=== PATIENT | male | born 1955 | race Hispanic/Latino ===

== ENCOUNTER 2018-04-06 13:19 | Inpatient (IN) | payer MEDICARE, OTHER, SELFPAY ==
--- NOTE | 2018-04-06 13:50 | RAD ---
3 VIEWS RIGHT FOOT: Date: 04/06/18 COMPARISON: None. HISTORY: Stepped on nail four weeks ago with nonhealing wound in the foot. The patient is diabetic. FINDINGS: Three views of the right foot show no evidence of acute fracture or dislocation. Soft tissue swelling is seen along the lateral aspect of the foot near the metatarsophalangeal joints. There appears to b e air in the soft tissues which could represent an infectious process. Evaluation for erosion of the bone in this location is limited secondary to the lucency from the air. IMPRESSION: There appears to be air in the soft tissues of the foot, likely secondary to an infection. Evaluation for bony involvement is difficult given the air. POS: [facility]
[2018-04-06 15:17] LABS: #Basophils 0.1 thou/uL (0.0-0.2); #Eosinphils 0.1 thou/uL (0.0-0.7); #Lymphocytes 2.1 thou/uL (1.20-3.40); #Neutrophils 9.2 thou/uL (1.40-6.50); %Basophils 0.4 % (0.0-1.0); %Eosinophils 0.8 % (0.0-10.0); %Lymphocytes 16.6 % (21.0-51.0); %Neutrophils 74.2 % (42.0-75.0); Hemoglobin 15.7 g/dL (14.0-18.0); Mean Corpuscular Hemoglobin 30.5 pg (27.0-31.0); Mean Corpuscular Volume 87.1 fL (78.0-98.0); Mean Platelet Volume 7.4 fL (7.4-10.4); Platelet Count 325 thou/uL (130-400); RBC Distribution Width 10.9 % (11.5-14.5); Red Blood Cell (RBC) Count 5.16 mill/uL (4.70-6.10); White Blood Cell (WBC) Count 12.4 thou/uL (4.8-10.8)
[2018-04-06 15:26] LABS: ALT (SGPT) 12 U/L (8-55); AST (SGOT) 13 U/L (5-34); Alkaline Phosphatase 96 U/L (40-150); Anion Gap 12 mmol/L (10-20); BUN (Urea Nitrogen) 12 mg/dL (8.4-25.7); Bilirubin, Total 0.5 mg/dL (0.2-1.2); Calc. Creatinine Clearance 0 mL/min (70-130); Calcium 9.4 mg/dL (7.8-10.44); Carbon Dioxide 29 mmol/L (22-29); Chloride 97 mmol/L (98-107); Estimated GFR-MDRD 87; Globulin 3.5 g/dL (2.4-3.5); Glucose 295 mg/dL (70-105); Potassium 4.3 mmol/L (3.5-5.1); Protein, Total 7.5 g/dL (6.0-8.3); Sodium 134 mmol/L (136-145)
[2018-04-06] MEDS ORDERED: Vancomycin HCl 1 GM in Premix Bag 1 BAG IVPB SCH (15:45)
--- NOTE | 2018-04-06 16:34 | HP ---
PRIMARY CARE PHYSICIAN: [facility]. REASON FOR ADMISSION: Right diabetic foot infection. HISTORY OF PRESENT ILLNESS: A 62-year-old male who has underlying history of diabetes and h ypertension who presented to emergency room for evaluation of right diabetic foot infection. The pat ricardo reports that about 4 weeks ago, he stepped on nail, since then he has pain, swelling in his righ t foot. He was given 2 times two different antibiotic therapy by his primary care physician, but noe silva is not feeling any better, but he feels that it is getting worse. His pain is exacerbated while walking. He did not have any fever or chills. He denies any associated nausea, vomiting, diarrhea, or UTI symptoms. Patient also noticed swelling and erythema over dorsum aspect of the foot and he i s tender in the plantar aspect of the right foot. His intensity of pain is about 7/10 especially wit h walking. REVIEW OF SYSTEMS: The following complete review of systems was negative, unless otherwise mentioned in the HPI or below: Constitutional: Weight loss or gain, ability to conduct usual activities. Skin: Rash, itching. Eyes: Double vision, pain. ENT/Mouth: Nose bleeding, neck stiffness, pain, tenderness. Cardiovascular: Palpitations, dyspnea on exertion, orthopnea. Respiratory: Shortness of breath, wheezing, cough, hemoptysis, fever or night sweats. Gastrointestinal: Poor appetite, abdominal pain, heartburn, nausea, vomiting, constipation, or diarrh ea. Genitourinary: Urgency, frequency, dysuria, nocturia. Musculoskeletal: Pain, swelling. Neurologic/Psychiatric: Anxiety, depression. Allergy/Immunologic: Skin rash, bleeding tendency. Please see my HPI for pertinent positive and negative. All other review of system reviewed and negat mariah except as mentioned in the HPI. PAST MEDICAL HISTORY: Chronic low back pain, diabetes type 2, hypertension, dyslipidemia. PAST SURGICAL HISTORY: Back surgery. PAST PSYCHIATRIC HISTORY: Reviewed and negative. SOCIAL HISTORY: Patient is and lives at home with family. No history of tobacco, alcohol or illicit drug abuse. FAMILY HISTORY: Diabetes runs among several family members. No family history of coronary artery di sease, stroke or cancer. ALLERGIES: No known drug allergy. CURRENT HOME MEDICATIONS: Metformin 500 mg p.o. daily, captopril 12.5 mg p.o. at bedtime, Humulin re gular insulin as per sliding scale. EMERGENCY ROOM COURSE: Patient has received vancomycin. PHYSICAL EXAMINATION: VITAL SIGNS: On arrival, blood pressure 163/89, pulse 99, respiratory rate 16, temperature 97.5, sat uration 99% on room air, weight 70.6 kilograms. GENERAL: Patient is currently alert, awake, no obvious acute distress. HEENT: Head is normocephalic, atraumatic. Eyes: Pupils round, reactive to light. Extraocular musc le intact. ENT: Oropharynx within normal limits. Moist mucous membranes, no oral lesions, no phary ngeal erythema, no exudate. NECK: Supple, no JVD, no thyromegaly, no carotid bruit, no jugular venous distention. LUNGS: Clear to auscultation without any rhonchi or rales. CARDIAC: S1, S2 regular. No murmur, no gallop, no rub. ABDOMEN: Soft, bowel sounds present, nontender, nondistended. No organomegaly, no mass, no suprapub ic tenderness. BACK: Unremarkable, no CVA tenderness. EXTREMITIES: Upper extremity, passive movement of all joints are normal. Lower extremity, right brody t with a diabetic foot infection noted with erythema on the dorsum aspect of the foot as well as eryt beba on the plantar aspect of the foot. Fluctuance noted. Left foot within normal limits. Otherwis e, lower extremity within normal limit. NEUROLOGIC: Nonfocal examination. SIGNIFICANT LABORATORY DATA AND IMAGING: Foot x-ray showing air in the soft tissue of the foot, like ly due to infection. CBC: WBC 12.4, hemoglobin 15.7, platelets 325. BMP: Sodium 134, potassium 4. 3, chloride 97, carbon dioxide 29, BUN 12, creatinine 0.89, glucose 295, calcium 9.4. Lactic acid 0. 8. LFT: AST 13, ALT 12, alkaline phosphatase 96, albumin 4.0. ASSESSMENT: 1. Right diabetic foot infection. 2. Failure of outpatient therapy. 3. Mild sepsis due to problem #1. 4. Diabetes type 2, uncontrolled. 5. Hypertension. 6. Dyslipidemia. PLAN: Full admission to medical floor. General Surgery evaluation for possible debridement. If nee ded, we will obtain MRI of right lower extremity. We will treat infection with vancomycin and Zosyn. Vancomycin dose will be adjusted by pharmacy. We will control his pain with [place] and morphine. P robiotics with Florastor 250 mg p.o. daily. We will control his diabetes with insulin as per sliding scale. We will continue with metformin 500 mg p.o. b.i.d., captopril 25 mg p.o. b.i.d., Lipitor 10 mg p.o. at bedtime and aspirin 81 mg p.o. daily. Deep venous thrombosis prophylaxis. Lovenox 40 mg subcu daily. Gastrointestinal prophylaxis, Pepcid 20 mg p.o. b.i.d. Code status: The patient is FULL CODE. The patient's is surrogate decision maker. Disposition plan based on clinical course. We are expecting patient's stay in hospital more than 2 m idnights. Plan of care discussed with the patient in detail.
[2018-04-06 17:06] LABS: Bilirubin Negative (Negative); Blood, Urine Trace (Negative); Clarity CLEAR (Clear); Glucose, Urine (Dipstick) 500 mg/dL (Negative); Leukocyte Negative (Negative); Nitrite Negative (Negative); Protein, Urine (Dipstick) 30 mg/dL (Neg-Trace); Specific Gravity, Urine 1.009 (1.002-1.036); Urobilinogen 0.2 mg/dL (0.2-1.0)
[2018-04-06 17:08] LABS: Bacteria/HPF None Seen HPF (None Seen); Hyaline Casts/LPF 0-3 HYALINE CAST LPF (0-3 Hyaline); RBC/HPF 0-3 HPF (0-3); Squamous Epithelial None Seen HPF (0-3); WBC/HPF None Seen HPF (0-3)
[2018-04-06] MEDS ORDERED: Diabetic Tussin 200 MG/10 ML UDCUP PO PRN (17:26)
[2018-04-06] MEDS ORDERED: Milk Of Magnesia 30 ML UDCUP PO PRN (17:26)
[2018-04-06] MEDS ORDERED: Labetalol HCl 100 MG/20 ML VIAL SLOW IVP PRN (17:26)
[2018-04-06] MEDS ORDERED: Eucerin (Mineral Oil/Petrolatum,White) 30 gm Jar TOP PRN (17:26)
[2018-04-06] MEDS ORDERED: Dextrose 5% in Water 1,000 ML IV PRN (17:26)
[2018-04-06] MEDS ORDERED: Ondansetron HCl/PF 4 MG/2 ML Vial IVP PRN ×2 (17:26)
[2018-04-06] MEDS ORDERED: Acetaminophen 325 MG TAB PO PRN ×2 (17:26)
[2018-04-06] MEDS ORDERED: Ondansetron ODT 4 MG TAB SL PRN (17:26)
[2018-04-06] MEDS ORDERED: Loperamide HCl 2 MG CAP PO PRN (17:26)
[2018-04-06] MEDS ORDERED: Chloraseptic Spray 180 ml Bottle PO PRN (17:26)
[2018-04-06] MEDS ORDERED: Senokot 8.6 MG TAB PO PRN (17:26)
[2018-04-06] MEDS ORDERED: Sodium Chloride 0.65% Nasal 44 ML BOT EA NARE PRN (17:26)
[2018-04-06] MEDS ORDERED: Artificial Tears 18 DROP/0.9 ML EA EYE PRN (17:26)
[2018-04-06] MEDS ORDERED: Loratadine 10 MG TAB PO PRN (17:26)
[2018-04-06] MEDS ORDERED: Dextrose 50% Abboject 50 ML SYRINGE SLOW IVP PRN (17:26)
[2018-04-06] MEDS ORDERED: Zolpidem Tartrate 5 MG TAB PO PRN (17:26)
[2018-04-06 17:31] VITALS: BMI 23.6
[2018-04-06] MEDS ORDERED: Piperacillin/Tazobactam 4.5 GM in Sodium Chloride 0.9% 100 ML IVPB SCH ×2 (18:00)
[2018-04-06] MEDS ORDERED: metFORMIN 500 MG TAB PO SCH (18:00)
[2018-04-06] MEDS: Sodium Chloride 0.9% 1,000 ML IV SCH (18:30)
[2018-04-06] MEDS: Piperacillin/Tazobactam 4.5 GM in Sodium Chloride 0.9% 100 ML IVPB SCH (18:30)
[2018-04-06] MEDS: Famotidine 20 MG TAB PO SCH (20:53)
[2018-04-06] MEDS: Atorvastatin Calcium 10 MG TAB PO SCH (20:53)
[2018-04-06] MEDS: HYDROcodone/Acetaminophen 5/325 mg Tablet PO PRN (20:54)
[2018-04-06] MEDS: HumaLOG 300 UNITS/3 ML VIAL SC PRN (20:55)
[2018-04-07] MEDS: Piperacillin/Tazobactam 4.5 GM in Sodium Chloride 0.9% 100 ML IVPB SCH ×5 (00:01→23:48)
[2018-04-07] MEDS: Vancomycin HCl 1 GM in Premix Bag 1 BAG IVPB SCH ×2 (03:11→16:09)
[2018-04-07] MEDS: Sodium Chloride 0.9% 1,000 ML IV SCH ×3 (03:11→21:17)
[2018-04-07 04:42] LABS: #Basophils 0.1 thou/uL (0.0-0.2); #Eosinphils 0.3 thou/uL (0.0-0.7); #Lymphocytes 2.7 thou/uL (1.20-3.40); #Monocytes 1.2 thou/uL (0.11-0.59); #Neutrophils 8.7 thou/uL (1.40-6.50); %Basophils 0.4 % (0.0-1.0); %Lymphocytes 21.1 % (21.0-51.0); %Monocytes 9.5 % (0.0-10.0); %Neutrophils 66.9 % (42.0-75.0); Hemoglobin 14.5 g/dL (14.0-18.0); Mean Corpuscular HGB CONC 34.9 g/dL (32.0-36.0); Mean Corpuscular Hemoglobin 30.5 pg (27.0-31.0); Mean Corpuscular Volume 87.3 fL (78.0-98.0); Mean Platelet Volume 7.2 fL (7.4-10.4); Platelet Count 311 thou/uL (130-400); RBC Distribution Width 10.8 % (11.5-14.5); Red Blood Cell (RBC) Count 4.76 mill/uL (4.70-6.10); White Blood Cell (WBC) Count 12.9 thou/uL (4.8-10.8)
[2018-04-07 05:04] LABS: ALT (SGPT) 10 U/L (8-55); AST (SGOT) 12 U/L (5-34); Albumin 3.5 g/dL (3.5-5.0); Alkaline Phosphatase 77 U/L (40-150); Anion Gap 12 mmol/L (10-20); BUN (Urea Nitrogen) 10 mg/dL (8.4-25.7); Bilirubin, Total 0.3 mg/dL (0.2-1.2); Calc. Creatinine Clearance 93 mL/min (70-130); Calcium 8.9 mg/dL (7.8-10.44); Carbon Dioxide 26 mmol/L (22-29); Chloride 100 mmol/L (98-107); Estimated GFR-MDRD Greater than 90; Globulin 3.5 g/dL (2.4-3.5); Glucose 277 mg/dL (70-105); Potassium 4.3 mmol/L (3.5-5.1); Sodium 134 mmol/L (136-145)
[2018-04-07] MEDS ORDERED: Maxitrol 0.1% Opth Oint 3.5 GM TUBE ONE (06:43)
[2018-04-07] MEDS ORDERED: Bupivacaine HCl 0.25%/Epi 0.0005/PF 10 ML VIAL FS ONE ×2 (06:43→06:46)
[2018-04-07] MEDS ORDERED: Bacitracin Zinc Ointment 30 gm TUBE ONE (06:46)
[2018-04-07] MEDS ORDERED: Fentanyl 100 MCG/2 ML VIAL ONE ×2 (06:56→08:37)
--- NOTE | 2018-04-07 07:16 | CON ---
DATE OF CONSULTATION: 04/07/2018 REASON FOR CONSULT: Right foot diabetic infection. HISTORY OF PRESENT ILLNESS: Mr. Montes is a 65-year-old man with diabetes who stepped on a nail about 4 weeks ago. He states that he was put on antibiotics by his doctor, but has continued to have pain and swelling in his right foot, which has never completely resolved. He states that the pain fluctu ates in intensity, but never goes completely away. The wound on the bottom of his foot healed, but t he wound on the top of his foot is still open. He has not had much drainage. He has not had any fev ers or chills. He came to the emergency room and was admitted for IV antibiotics. A foot x-ray done in the emergency room showed gas in the soft tissues of the plantar foot, so surgical consult was re quested. PAST MEDICAL HISTORY: Diabetes, hypertension, hyperlipidemia and chronic back pain. PAST SURGICAL HISTORY: Back surgery. SOCIAL HISTORY: He does not smoke, drink or use illicit drugs. FAMILY HISTORY: Diabetes. ALLERGIES: No known drug allergies. OUTPATIENT MEDICATIONS: Metformin, captopril and sliding scale insulin. INPATIENT MEDICATIONS: Aspirin, Lipitor, captopril, Lovenox, Pepcid, sliding scale insulin, Zosyn, F lorastor, vancomycin and multiple PRNs. PHYSICAL EXAMINATION: VITAL SIGNS: The Patient has been afebrile since his admission. Heart rate 83, respirations 18, 94% saturated on room air, blood pressure 154/77. GENERAL: Reveals a healthy-appearing man in no acute distress. He is not flushed or toxic in appear ance. He is not jaundiced or icteric. HEENT: Neck is supple, without lymphadenopathy or thyroid nodules. HEART: Regular in its rate and rhythm without murmurs, rubs or gallops. LUNGS: Clear to auscultation bilaterally. ABDOMEN: Soft, nontender, nondistended, no palpable hernias or masses. No rigidity, rebound or guar ding. EXTREMITIES: Warm and well perfused. He has normal dorsalis pedis and posterior tibial pulses. His left foot is without any lesions. His right foot has a healed scar on the plantar surface between t he fourth and fifth metatarsal heads and an open wound on the dorsal surface between the fourth and f ifth metatarsal heads. There is no expressible purulence through this wound. The plantar surface of the foot medial to the healed stab wound is fluctuant and tender. There is erythema over the forefo ot. No lymphangitic streaking above the ankle. LABORATORY AND X-RAY FINDINGS: Plain films of the foot are reviewed and I agree with the written rep ort. ASSESSMENT: Diabetic abscess due to puncture wound. PLAN: I have recommended incision and drainage in the operating room. Due to the chronicity of his infection it is possible that he has osteomyelitis or an infection into the joint of his toes. I exp lained that if this is the case, I would recommend amputation of the toe, but the patient is unwillin g to consider that at this time. He is willing to proceed with incision and drainage of the abscess and with long-term antibiotics and wound care. He has been posted for the operating room. We will c ontinue his perioperative antibiotics. The procedure and its inherent risks were discussed with the patient. These include bleeding, infection, risks of anesthesia, need for other procedures, possibil ity for the infection to advance causing a loss of additional toes or the foot and failure of the wou nd to heal.
[2018-04-07] MEDS ORDERED: Promethazine HCl 25 MG/ML VIAL IM PRN (08:04)
[2018-04-07] MEDS ORDERED: Promethazine HCl 25 MG/ML VIAL SLOW IVP PRN (08:04)
[2018-04-07] MEDS ORDERED: Ondansetron HCl/PF 4 MG/2 ML Vial IVP PRN (08:04)
[2018-04-07] MEDS: Famotidine 20 MG TAB PO SCH ×2 (08:58→21:17)
[2018-04-07] MEDS: Saccharomyces boulardii 250 MG CAP PO SCH (08:58)
[2018-04-07] MEDS: metFORMIN 500 MG TAB PO SCH ×2 (08:59→16:07)
[2018-04-07] MEDS: Enoxaparin Sodium 40 MG/0.4 ML SYRINGE SC SCH (09:00)
--- NOTE | 2018-04-07 11:22 | PDOC.PN ---
- Subjective Encounter Start Date: 04/07/18 Encounter Start Time: 09:20 -: old records requested/rev pt had I & D today, he feels better, his pain is controlled - Objective Resuscitation Status: Resuscitation Status FULL:Full Resuscitation MAR Reviewed: Yes Vital Signs & Weight: Vital Signs (12 hours) Temp Pulse Resp BP BP Pulse Ox 04/07/18 10:55 97.7 F 92 20 175/89 H 95 04/07/18 10:29 97.7 F 81 18 156/82 H 97 04/07/18 09:00 75 191/83 H 04/07/18 08:50 97.6 F 75 18 99 04/07/18 00:00 98.2 F 83 18 154/77 H 94 L Weight Admit Weight 155 lb Weight 155 lb I&O: 04/06/18 04/07/18 04/08/18 06:59 06:59 06:59 Intake Total 1076 Balance 1076 Result Diagrams: 04/07/18 04:08 04/07/18 04:08 Additional Labs: Accuchecks 04/07/18 04/06/18 05:11 20:41 POC Glucose 236 H 230 H Phys Exam - Physical Examination Constitutional: NAD HEENT: PERRLA, moist MMs, sclera anicteric Neck: no JVD, supple Respiratory: no wheezing, no rales, no rhonchi Cardiovascular: RRR, no significant murmur, no rub Gastrointestinal: soft, non-tender, no distention, positive bowel sounds Musculoskeletal: no edema, pulses present right foot with dressing and wound vac in place Neurological: non-focal, normal sensation, moves all 4 limbs Psychiatric: normal affect, A&O x 3 Skin: no rash, normal turgor Dx/Plan (1) Diabetic foot infection Code(s): E11.628 - TYPE 2 DIABETES MELLITUS WITH OTHER SKIN COMPLICATIONS; L08.9 - LOCAL INFECTION OF THE SKIN AND SUBCUTANEOUS TISSUE, UNSP Status: Acute Plan: continue IV antibiotics as ordered, follow culture, on vancomycin and zosyn Comment: s/p I & D (2) Failure of outpatient treatment Code(s): Z78.9 - OTHER SPECIFIED HEALTH STATUS Status: Acute (3) DM2 (diabetes mellitus, type 2) Status: Chronic (4) Dyslipidemia Code(s): E78.5 - HYPERLIPIDEMIA, UNSPECIFIED Status: Chronic (5) HTN (hypertension) Code(s): I10 - ESSENTIAL (PRIMARY) HYPERTENSION Status: Chronic - Plan cont current plan of care, plan discussed w/ family, continue antibiotics * wound care * consult dr alejandra to decide if IV antibiotics vs oral on discharge * medication reviewed as below * symptomatic treatment * discussed with family bedside. Review of Systems - Review of Systems Constitutional: negative: fever, chills, sweats, weakness, malaise, other Eyes: negative: Pain, Vision Change, Conjunctivae Inflammation, Eyelid Inflammation, Redness, Other ENT: negative: Ear Pain, Ear Discharge, Nose Pain, Nose Discharge, Nose Congestion, Mouth Pain, Mouth Swelling, Throat Pain, Throat Swelling, Other Respiratory: negative: Cough, Dry, Shortness of Breath, Hemoptysis, SOB with Excertion, Pleuritic Pain, Sputum, Wheezing Cardiovascular: negative: chest pain, palpitations, orthopnea, paroxysmal nocturnal dyspnea, edema, light headedness, other Gastrointestinal: negative: Nausea, Vomiting, Abdominal Pain, Diarrhea, Constipation, Melena, Hematochezia, Other Genitourinary: negative: Dysuria, Frequency, Incontinence, Hematuria, Retention , Other Musculoskeletal: Foot Pain. negative: Neck Pain, Shoulder Pain, Arm Pain, Back Pain, Hand Pain, Leg Pain, Other - Medications/Allergies Allergies/Adverse Reactions: Allergies Allergy/AdvReac Type Severity Reaction Status Date / Time No Known Drug Allergies Allergy Verified 06/13/17 21:20 Medications: Current Medications Acetaminophen (Tylenol) 650 mg PO Q4H PRN PRN Reason: Headache/Fever or Pain Hydrocodone Bitart/Acetaminophen ([place] 5/325) 1 tab PO Q4H PRN PRN Reason: Moderate Pain (4-6) Last Admin: 04/06/18 20:54 Dose: 1 tab Al Hydroxide/Mg Hydroxide (Maalox) 30 ml PO Q6H PRN PRN Reason: Heartburn or Indigestion Artificial Tears (Tears Naturale) 0 drop EA EYE PRN PRN PRN Reason: Dry Eyes Aspirin (Aspirin Chewable) 81 mg PO DAILY [facility] Last Admin: 04/07/18 08:59 Dose: 81 mg Atorvastatin Calcium (Lipitor) 10 mg PO HS [facility] Last Admin: 04/06/18 20:53 Dose: 10 mg Captopril (Capoten) 25 mg PO BID-AC [facility] Last Admin: 04/07/18 09:00 Dose: 25 mg Dextrose/Water (Dextrose 50%) 25 gm SLOW IVP PRN PRN PRN Reason: Hypoglycemia Enoxaparin Sodium (Lovenox) 40 mg SC 0900 [facility] Last Admin: 04/07/18 09:00 Dose: Not Given Famotidine (Pepcid) 20 mg PO BID [facility] Last Admin: 04/07/18 08:58 Dose: 20 mg Glucagon (Glucagon) 1 mg IM PRN PRN PRN Reason: Hypoglycemia Guaifenesin (Robitussin Sf) 200 mg PO Q4H PRN PRN Reason: Cough Hydralazine HCl (Apresoline) 10 mg SLOW IVP Q4H PRN PRN Reason: Systolic BP > 180 Dextrose/Water (D5w) 1,000 mls @ 0 mls/hr IV .Q0M PRN; As Directed PRN Reason: Hypoglycemia Sodium Chloride (Normal Saline 0.9%) 1,000 mls @ 100 mls/hr IV .Q10H [facility] Last Admin: 04/07/18 03:11 Dose: 1,000 mls Piperacillin Sod/Tazobactam (Sod 4.5 gm/ Sodium Chloride) 100 mls @ 200 mls/hr IVPB Q6HR [facility] Last Admin: 04/07/18 05:28 Dose: 100 mls Vancomycin HCl 1 gm/ Device 200 mls @ 200 mls/hr IVPB 0400,1600 [facility] Last Admin: 04/07/18 03:11 Dose: 200 mls Insulin Human Lispro (Humalog) 0 units SC .MODERATE SLIDING SC PRN PRN Reason: Moderate Correctional Scale Insulin Human Lispro (Humalog) 0 units SC .BEDTIME SLIDING SC PRN PRN Reason: Bedtime Correctional Scale Last Admin: 04/06/18 20:55 Dose: 2 unit Labetalol HCl (Normodyne) 20 mg SLOW IVP Q4H PRN PRN Reason: Systolic BP > 180 Loperamide HCl (Imodium) 2 mg PO PRN PRN PRN Reason: Diarrhea/Loose Stools Loratadine (Claritin) 10 mg PO DAILYPRN PRN PRN Reason: Sinus Symptoms Magnesium Hydroxide (Milk Of Magnesium) 30 ml PO DAILYPRN PRN PRN Reason: Constipation Metformin HCl (Glucophage) 500 mg PO BID-[facility] Last Admin: 04/07/18 08:59 Dose: 500 mg Mineral Oil/White Petrolatum (Eucerin Cream) 0 gm TOP BIDPRN PRN PRN Reason: Dry Skin Miscellaneous Medication (Pharmacy To Dose) 1 each IVPB ONE PRN PRN Reason: Pharmacy to dose Stop: 05/06/18 17:27 Morphine Sulfate (Morphine) 2 mg SLOW IVP Q4H PRN PRN Reason: Pain Last Admin: 04/07/18 09:26 Dose: 2 mg Ondansetron HCl (Zofran Odt) 4 mg PO Q6H PRN PRN Reason: Nausea/Vomiting Ondansetron HCl (Zofran) 4 mg IVP Q6H PRN PRN Reason: Nausea/Vomiting Phenol (Chloraseptic [place] 180 Ml Bot) 0 ml PO PRN PRN PRN Reason: Sore Throat Saccharomyces Boulardii (Florastor) 250 mg PO DAILY [facility] Last Admin: 04/07/18 08:58 Dose: 250 mg Senna (Senokot) 2 tab PO HSPRN PRN PRN Reason: Constipation Sodium Chloride ([place] Nasal [place] 0.65%) 0 ml EA NARE QIDPRN PRN PRN Reason: Nasal Congestion Zolpidem Tartrate (Ambien) 5 mg PO HSPRN PRN PRN Reason: Insomnia
[2018-04-07] MEDS: HumaLOG 300 UNITS/3 ML VIAL SC PRN ×3 (12:00→21:18)
[2018-04-07] MEDS ORDERED: PROPOFOL 200 MG/20 ML VIAL ONE (13:15)
[2018-04-07] MEDS ORDERED: Lidocaine 1% PF 5 ML VIAL ONE (13:15)
[2018-04-07] MEDS ORDERED: Ondansetron HCl/PF 4 MG/2 ML Vial ONE (13:15)
[2018-04-07] MEDS ORDERED: Ketorolac Tromethamine 30 MG/ML VIAL ONE (13:15)
[2018-04-07] MEDS ORDERED: Dexamethasone 20 MG/5 ML VIAL ONE (13:15)
[2018-04-07] MEDS: HYDROcodone/Acetaminophen 5/325 mg Tablet PO PRN (16:08)
[2018-04-07] MEDS: Atorvastatin Calcium 10 MG TAB PO SCH (21:17)
--- NOTE | 2018-04-07 22:13 | CON ---
DATE OF CONSULTATION: 04/07/2018 REASON FOR CONSULTATION: Right foot inflammatory process. HISTORY OF PRESENT ILLNESS: A 62-year-old history of type 2 diabetes and hypertension, who stepped o n one sharp object, appears to be a nail or some sort of tac that penetrated his bottom aspect of his lateral forefoot right side through his sandals. He was walking in the backyard area. The patient developed inflammatory process in the right lateral forefoot and he was seen by a physician in an out lying clinic and given what appears to be Rocephin plus on oral antimicrobial therapy, which he does not recall the name. There was no improvement in inflammatory process. He denied any headaches, vis ual symptoms, sore throat, odynophagia, dysphagia, no abdominal pain or diarrhea. No genitourinary s ymptoms. He did develop swelling of the dorsal aspect of the right foot and eventually decided to co me to the emergency room and was admitted. Initial findings included air and soft tissues of the rig ht foot. White cell count 12,000, hemoglobin 15 and creatinine 0.89, glucose 295. Surgical debridem ent has been performed by Dr. Tamayo. Currently, he is comfortable at rest. Denies headaches. Oth er 10-point review of systems is as above. He has moderate pain at the right foot. PAST MEDICAL HISTORY: Includes type 2 diabetes, back pain, hypertension, dyslipidemia. PAST SURGICAL HISTORY: Laminectomy. SOCIAL HISTORY: Never a smoker. . FAMILY HISTORY: Noncontributory except for diabetes. ALLERGIES: None. CURRENT MEDICATION LIST: Includes Tylenol, [place], Maalox, aspirin, Lipitor, Capoten, enoxaparin, hyd ralazine, loperamide, Zosyn, and vancomycin. PHYSICAL EXAMINATION: VITAL SIGNS: T-max 98.2, blood pressure 175/89, pulse 92, respirations 18-20, and O2 sat 95%. SKIN: Shows the foot right before the surgical intervention with an area of blistering with epidermo lysis restricted to 1.5 cm region, dorsal aspect of the right forefoot lateral aspect between the fou rth and the fifth toes. In the bottom section of the right foot, there is a puncture wound noticeabl e. No necrosis noted there. No lymphadenopathy. HEENT: No lymphadenopathy. Ocular movements conjugate. Oral cavity with quite a few missing teeth. Remainder ones with some decay. NECK: Supple, no jugular vein distention or carotid bruits. LUNGS: Symmetric clear breath sounds. HEART: S1 and S2, regular rate. No S3 or S4. ABDOMEN: Soft, not distended or tender. No ascites. No bladder distention. EXTREMITIES: No joint inflammatory activity outside the area of involvement. Pulses are 2+ in dorsa lis pedis. Cap refill normal. NEUROLOGIC: Cognitive function appears to be normal. LABORATORY DATA: White cell count 12.4, now 12.9, hemoglobin 14, platelets 311. Sodium 134, creatin ine 0.84 with a normal liver profile, albumin 3.5. Urinalysis was normal. Microbiology with pending cultures, blood cultures thus far negative. A few gram negative rods were seen in the Gram stain fr om the foot I&D process. ASSESSMENT: Type 2 diabetes with perforating injury to the right forefoot and now with inflammatory process, status post surgical debridement. We will wait for the surgical report, may need an MRI to evaluate for bone penetration, but if it is restricted to the soft tissues and will just wait for the final identification and susceptibility profile of the organism. There is a risk of Pseudomonas in view of the type of injury and depending on susceptibility might require continuation of IV antimicro bial therapy or not. Again if the surgical report is equivocal, then we will probably complete the e valuation of the MRI of the right foot make sure that we do not have to extend the duration of therap y. No evidence of bacteremia or distant sites of involvement at this point in time.
[2018-04-08 03:31] LABS: Vancomycin, Trough 8.4 ug/mL
[2018-04-08] MEDS: Vancomycin HCl 1.5 GM in Sodium Chloride 0.9% 250 ML 300 ML IVPB SCH ×2 (03:51→15:04)
[2018-04-08] MEDS: HumaLOG 300 UNITS/3 ML VIAL SC PRN ×2 (05:57→21:18)
[2018-04-08] MEDS: Piperacillin/Tazobactam 4.5 GM in Sodium Chloride 0.9% 100 ML IVPB SCH ×4 (05:57→23:42)
[2018-04-08] MEDS: Sodium Chloride 0.9% 1,000 ML IV SCH (05:57)
[2018-04-08] MEDS: Saccharomyces boulardii 250 MG CAP PO SCH (08:10)
[2018-04-08] MEDS: Famotidine 20 MG TAB PO SCH ×2 (08:11→21:13)
[2018-04-08] MEDS: metFORMIN 500 MG TAB PO SCH ×2 (08:11→16:56)
[2018-04-08] MEDS: Enoxaparin Sodium 40 MG/0.4 ML SYRINGE SC SCH (08:12)
[2018-04-08] MEDS ORDERED: Polyethylene Glycol 3350 17 GM Packet PO SCH (10:15)
--- NOTE | 2018-04-08 11:45 | PDOC.PN ---
- Subjective Encounter Start Date: 04/08/18 Encounter Start Time: 10:00 Patient seen and examined. No new complaints. No overnight events has constipation - Objective Resuscitation Status: Resuscitation Status FULL:Full Resuscitation MAR Reviewed: Yes Vital Signs & Weight: Vital Signs (12 hours) Temp Pulse Resp BP BP Pulse Ox 04/08/18 08:12 81 160/83 H 04/08/18 08:00 98.3 F 81 20 95 04/08/18 07:29 98.3 F 81 18 160/83 H 95 04/08/18 03:16 98.5 F 85 16 135/68 95 04/08/18 00:00 98.5 F 85 16 145/75 H 95 Weight Admit Weight 155 lb Weight 155 lb I&O: 04/07/18 04/08/18 04/09/18 06:59 06:59 06:59 Intake Total 1076 3310 Output Total 800 Balance 1076 2510 Result Diagrams: 04/07/18 04:08 04/07/18 04:08 Additional Labs: Accuchecks 04/08/18 04/07/18 04/07/18 05:57 20:15 16:27 POC Glucose 224 H 215 H 350 H Phys Exam - Physical Examination Constitutional: NAD HEENT: PERRLA, moist MMs, sclera anicteric Neck: no JVD, supple Respiratory: no wheezing, no rales, no rhonchi Cardiovascular: RRR, no significant murmur, no rub Gastrointestinal: soft, non-tender, no distention, positive bowel sounds Musculoskeletal: no edema, pulses present wound vac in place Neurological: non-focal, normal sensation Psychiatric: normal affect, A&O x 3 Skin: no rash, normal turgor Dx/Plan (1) Diabetic foot infection Code(s): E11.628 - TYPE 2 DIABETES MELLITUS WITH OTHER SKIN COMPLICATIONS; L08.9 - LOCAL INFECTION OF THE SKIN AND SUBCUTANEOUS TISSUE, UNSP Status: Acute Comment: s/p I & D (2) Failure of outpatient treatment Code(s): Z78.9 - OTHER SPECIFIED HEALTH STATUS Status: Acute (3) DM2 (diabetes mellitus, type 2) Status: Chronic (4) Dyslipidemia Code(s): E78.5 - HYPERLIPIDEMIA, UNSPECIFIED Status: Chronic (5) HTN (hypertension) Code(s): I10 - ESSENTIAL (PRIMARY) HYPERTENSION Status: Chronic - Plan cont current plan of care, plan discussed w/ family, continue antibiotics * continue wound care * continue iv antibiotics * pain controlled * miralax and colace. Review of Systems - Review of Systems Eyes: negative: Pain, Vision Change, Conjunctivae Inflammation, Eyelid Inflammation, Redness, Other ENT: negative: Ear Pain, Ear Discharge, Nose Pain, Nose Discharge, Nose Congestion, Mouth Pain, Mouth Swelling, Throat Pain, Throat Swelling, Other Respiratory: negative: Cough, Dry, Shortness of Breath, Hemoptysis, SOB with Excertion, Pleuritic Pain, Sputum, Wheezing Cardiovascular: negative: chest pain, palpitations, orthopnea, paroxysmal nocturnal dyspnea, edema, light headedness, other Gastrointestinal: Constipation. negative: Nausea, Vomiting, Abdominal Pain, Diarrhea, Melena, Hematochezia, Other Genitourinary: negative: Dysuria, Frequency, Incontinence, Hematuria, Retention , Other Musculoskeletal: negative: Neck Pain, Shoulder Pain, Arm Pain, Back Pain, Hand Pain, Leg Pain, Foot Pain, Other Skin: negative: Rash, Lesions, Tulio, Bruising, Other - Medications/Allergies Allergies/Adverse Reactions: Allergies Allergy/AdvReac Type Severity Reaction Status Date / Time No Known Drug Allergies Allergy Verified 06/13/17 21:20 Medications: Current Medications Acetaminophen (Tylenol) 650 mg PO Q4H PRN PRN Reason: Headache/Fever or Pain Hydrocodone Bitart/Acetaminophen ([place] 5/325) 1 tab PO Q4H PRN PRN Reason: Moderate Pain (4-6) Last Admin: 04/07/18 16:08 Dose: 1 tab Al Hydroxide/Mg Hydroxide (Maalox) 30 ml PO Q6H PRN PRN Reason: Heartburn or Indigestion Artificial Tears (Tears Naturale) 0 drop EA EYE PRN PRN PRN Reason: Dry Eyes Aspirin (Aspirin Chewable) 81 mg PO DAILY [facility] [place] Last Admin: 04/08/18 08:11 Dose: 81 mg Atorvastatin Calcium (Lipitor) 10 mg PO HS [facility] [place] Last Admin: 04/07/18 21:17 Dose: 10 mg Captopril (Capoten) 25 mg PO BID-AC [facility] Last Admin: 04/08/18 08:12 Dose: 25 mg Dextrose/Water (Dextrose 50%) 25 gm SLOW IVP PRN PRN PRN Reason: Hypoglycemia Docusate Sodium (Colace) 100 mg PO BID [facility] [place] Enoxaparin Sodium (Lovenox) 40 mg SC 0900 [facility] Last Admin: 04/08/18 08:12 Dose: 40 mg Famotidine (Pepcid) 20 mg PO BID [facility] Last Admin: 04/08/18 08:11 Dose: 20 mg Glucagon (Glucagon) 1 mg IM PRN PRN PRN Reason: Hypoglycemia Guaifenesin (Robitussin Sf) 200 mg PO Q4H PRN PRN Reason: Cough Hydralazine HCl (Apresoline) 10 mg SLOW IVP Q4H PRN PRN Reason: Systolic BP > 180 Dextrose/Water (D5w) 1,000 mls @ 0 mls/hr IV .Q0M PRN; As Directed PRN Reason: Hypoglycemia Piperacillin Sod/Tazobactam (Sod 4.5 gm/ Sodium Chloride) 100 mls @ 200 mls/hr IVPB Q6HR [facility] [place] Last Admin: 04/08/18 11:30 Dose: 100 mls Vancomycin HCl 1.5 gm/ Sodium (Chloride) 300 mls @ 200 mls/hr IVPB 0400,1600 [facility] [place] Last Admin: 04/08/18 03:51 Dose: 300 mls Insulin Human Lispro (Humalog) 0 units SC .MODERATE SLIDING SC PRN PRN Reason: Moderate Correctional Scale Last Admin: 04/08/18 05:57 Dose: 4 unit Insulin Human Lispro (Humalog) 0 units SC .BEDTIME SLIDING SC PRN PRN Reason: Bedtime Correctional Scale Last Admin: 04/07/18 21:18 Dose: 2 unit Labetalol HCl (Normodyne) 20 mg SLOW IVP Q4H PRN PRN Reason: Systolic BP > 180 Loperamide HCl (Imodium) 2 mg PO PRN PRN PRN Reason: Diarrhea/Loose Stools Loratadine (Claritin) 10 mg PO DAILYPRN PRN PRN Reason: Sinus Symptoms Magnesium Hydroxide (Milk Of Magnesium) 30 ml PO DAILYPRN PRN PRN Reason: Constipation [facility] Last Admin: 04/08/18 08:11 Dose: 500 mg Mineral Oil/White Petrolatum (Eucerin Cream) 0 gm TOP BIDPRN PRN PRN Reason: Dry Skin Miscellaneous Medication (Pharmacy To Dose) 1 each IVPB ONE PRN PRN Reason: Pharmacy to dose Stop: 05/06/18 17:27 Morphine Sulfate (Morphine) 2 mg SLOW IVP Q4H PRN PRN Reason: Pain Last Admin: 04/08/18 05:56 Dose: 2 mg Ondansetron HCl (Zofran Odt) 4 mg PO Q6H PRN PRN Reason: Nausea/Vomiting Ondansetron HCl (Zofran) 4 mg IVP Q6H PRN PRN Reason: Nausea/Vomiting Phenol (Chloraseptic [place] 180 Ml Bot) 0 ml PO PRN PRN PRN Reason: Sore Throat Polyethylene Glycol (Miralax) 17 gm PO DAILY [facility] Polyethylene Glycol (Miralax) 17 gm PO ONE [facility] Stop: 04/08/18 12:00 Saccharomyces Boulardii (Florastor) 250 mg PO DAILY [facility] Last Admin: 04/08/18 08:10 Dose: 250 mg Senna (Senokot) 2 tab PO HSPRN PRN PRN Reason: Constipation Sodium Chloride ([place] Nasal [place] 0.65%) 0 ml EA NARE QIDPRN PRN PRN Reason: Nasal Congestion Sodium Chloride (Flush - Normal Saline) 10 ml IVF Q12HR [facility] Sodium Chloride (Flush - Normal Saline) 10 ml IVF PRN PRN PRN Reason: Saline Flush Zolpidem Tartrate (Ambien) 5 mg PO HSPRN PRN PRN Reason: Insomnia Last Admin: 04/07/18 21:17 Dose: 5 mg
--- NOTE | 2018-04-08 18:26 | PDOC.OP ---
Operative Note - Operative Note Operative Note: PROCEDURE: Incision and debridement of right foot abscess DATE OF PROCEDURE: 04/07/2018 SURGEON: Bronson Tamayo M.D. PREOPERATIVE DIAGNOSES: Right foot abscess in diabetic patient POSTOPERATIVE DIAGNOSIS: Right foot abscess and diabetic patient HISTORY: Patient is a 62-year-old diabetic male who stepped on a nail 4 weeks prior to admission. He has continuing redness and swelling and pain of his foot and a plain film of the foot showed gas in the plantar soft tissues consistent with infection. Recommendation was made to proceed to the operating room for incision and debridement. I recommended amputation if there is obvious involvement of the bones or joints the fourth or fifth toes. The patient refused to consider amputation at this time so incision and debridement alone was planned. PROCEDURE IN DETAIL: After informed consent was obtained and appropriate preoperative antibiotics were continued the patient was taken to the operating on his placed in supine position and general anesthesia was administered. His prepped and draped in the standard sterile fashion and local anesthesia infused the skin and subcutaneous tissues overlying his dorsal wound. The skin was incised and a large abscess cavity encountered. Pus was sent for Gram stain and culture. The nonviable skin and subcutaneous tissues were sharply excised. The abscess cavity was found to track between his fourth and fifth metatarsals down to the plantar abscess which had been seen on x-ray. Local anesthesia was made over the plantar abscess and a plantar incision made completely draining this cavity. Nonviable subcutaneous tissues were sharply excised. The abscess cavity was in close proximity to the bones but the tissues overlying the bones and joint appeared to be intact. The abscess cavity did track medially over the foot both in the plantar and dorsal locations and the incisions were extended to allow adequate debridement and packing of these areas. Once all nonviable and infected tissue was removed the wound care team was called to place an irrigating VAC to the foot. The patient was then extubated and taken to the recovery room in good condition. Estimated blood loss was minimal. There were no complications. Specimen is pus for Gram stain and culture.
--- NOTE | 2018-04-08 18:28 | PDOC.GSPN ---
Surgery Progress Note: Subj - Subjective Narrative: Patient has no complaints. He has little pain in his foot but it is controlled. The VAC is in place and has a good seal. The drainage is clear. Blood sugars are still higher than optimal. Culture shows gram-negative rods but identification and sensitivities are pending. 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 Long-term antibiotics are indicated. He will require a home VAC for limb salvage. I will see him tomorrow and examine the wound with the wound care team. Surgery Progress Note: Obj - Vital signs Vital signs: Vital Signs - Most Recent Temp Pulse Resp BP Pulse Ox 98.3 F 81 20 165/87 H 95 04/08/18 08:00 04/08/18 16:57 04/08/18 08:00 04/08/18 16:57 04/08/18 08:00 Surgery Progress Note: Results - Labs Result Diagrams: 04/07/18 04:08 04/07/18 04:08 Lab results: Laboratory Results - last 24 hr 04/08/18 04/08/18 11:39 16:02 POC Glucose 208 H 287 H
[2018-04-08] MEDS: Atorvastatin Calcium 10 MG TAB PO SCH (21:13)
[2018-04-08] MEDS: Docusate 100 MG CAP PO SCH (21:13)
[2018-04-08] MEDS: Ondansetron ODT 4 MG TAB PO PRN (21:16)
[2018-04-08] MEDS: hydrALAZINE 20 MG/ML VIAL SLOW IVP PRN (21:20)
[2018-04-08] MEDS: HYDROcodone/Acetaminophen 5/325 mg Tablet PO PRN (23:47)
[2018-04-09] MEDS: Vancomycin HCl 1.5 GM in Sodium Chloride 0.9% 250 ML 300 ML IVPB SCH (03:32)
[2018-04-09] MEDS: Piperacillin/Tazobactam 4.5 GM in Sodium Chloride 0.9% 100 ML IVPB SCH ×3 (05:57→18:08)
[2018-04-09] MEDS: HumaLOG 300 UNITS/3 ML VIAL SC PRN ×4 (06:01→20:26)
[2018-04-09] MEDS: Saccharomyces boulardii 250 MG CAP PO SCH (08:33)
[2018-04-09] MEDS: metFORMIN 500 MG TAB PO SCH ×2 (08:33→16:09)
[2018-04-09] MEDS: HYDROcodone/Acetaminophen 5/325 mg Tablet PO PRN ×3 (08:34→20:25)
[2018-04-09] MEDS: Famotidine 20 MG TAB PO SCH ×2 (08:34→20:14)
[2018-04-09] MEDS: Enoxaparin Sodium 40 MG/0.4 ML SYRINGE SC SCH (08:34)
[2018-04-09] MEDS: Polyethylene Glycol 3350 17 GM Packet PO SCH (08:34)
[2018-04-09] MEDS: Docusate 100 MG CAP PO SCH ×2 (08:34→20:14)
--- NOTE | 2018-04-09 12:08 | PDOC.PN ---
- Subjective Encounter Start Date: 04/09/18 Encounter Start Time: 09:40 Patient seen and examined. No new complaints. No overnight events - Objective Resuscitation Status: Resuscitation Status FULL:Full Resuscitation MAR Reviewed: Yes Vital Signs & Weight: Vital Signs (12 hours) Temp Pulse Resp BP Pulse Ox 04/09/18 11:29 97.7 F 82 16 161/79 H 97 04/09/18 08:33 80 04/09/18 08:22 97.9 F 80 16 174/85 H 97 04/09/18 08:00 97.9 F 80 16 04/09/18 05:23 97.9 F 78 18 165/81 H 95 Weight Admit Weight 155 lb Weight 155 lb I&O: 04/08/18 04/09/18 04/10/18 06:59 06:59 06:59 Intake Total 3310 2400 Output Total 800 1300 Balance 2510 1100 Result Diagrams: 04/07/18 04:08 04/07/18 04:08 Additional Labs: Accuchecks 04/09/18 04/09/18 04/08/18 11:08 05:31 20:24 POC Glucose 271 H 184 H 266 H 04/08/18 04/08/18 16:02 11:39 POC Glucose 287 H 208 H Phys Exam - Physical Examination Constitutional: NAD HEENT: PERRLA, moist MMs, sclera anicteric Neck: no JVD, supple Respiratory: no wheezing, no rales, no rhonchi Cardiovascular: RRR, no significant murmur, no rub Gastrointestinal: soft, non-tender, no distention, positive bowel sounds Musculoskeletal: no edema, pulses present right foot with wound vac in place Neurological: non-focal, normal sensation, moves all 4 limbs Psychiatric: normal affect, A&O x 3 Skin: no rash, normal turgor Dx/Plan (1) Diabetic foot infection Code(s): E11.628 - TYPE 2 DIABETES MELLITUS WITH OTHER SKIN COMPLICATIONS; L08.9 - LOCAL INFECTION OF THE SKIN AND SUBCUTANEOUS TISSUE, UNSP Status: Acute Comment: s/p I & D (2) Failure of outpatient treatment Code(s): Z78.9 - OTHER SPECIFIED HEALTH STATUS Status: Acute (3) DM2 (diabetes mellitus, type 2) Status: Chronic (4) Dyslipidemia Code(s): E78.5 - HYPERLIPIDEMIA, UNSPECIFIED Status: Chronic (5) HTN (hypertension) Code(s): I10 - ESSENTIAL (PRIMARY) HYPERTENSION Status: Chronic - Plan cont current plan of care, plan discussed w/ family, continue antibiotics, social service technician * continue wound care with wound vac * he will need wound vac arrangement * he may need iv antibiotic on discharge as per surgeon, that will defer to id team * medication reviewed as below * symptomatic treatment * pain controlled * discussed with family. Review of Systems - Review of Systems Eyes: negative: Pain, Vision Change, Conjunctivae Inflammation, Eyelid Inflammation, Redness, Other ENT: negative: Ear Pain, Ear Discharge, Nose Pain, Nose Discharge, Nose Congestion, Mouth Pain, Mouth Swelling, Throat Pain, Throat Swelling, Other Respiratory: negative: Cough, Dry, Shortness of Breath, Hemoptysis, SOB with Excertion, Pleuritic Pain, Sputum, Wheezing Cardiovascular: negative: chest pain, palpitations, orthopnea, paroxysmal nocturnal dyspnea, edema, light headedness, other Gastrointestinal: negative: Nausea, Vomiting, Abdominal Pain, Diarrhea, Constipation, Melena, Hematochezia, Other Genitourinary: negative: Dysuria, Frequency, Incontinence, Hematuria, Retention , Other Musculoskeletal: negative: Neck Pain, Shoulder Pain, Arm Pain, Back Pain, Hand Pain, Leg Pain, Foot Pain, Other Skin: negative: Rash, Lesions, Tulio, Bruising, Other - Medications/Allergies Allergies/Adverse Reactions: Allergies Allergy/AdvReac Type Severity Reaction Status Date / Time No Known Drug Allergies Allergy Verified 06/13/17 21:20 Medications: Current Medications Acetaminophen (Tylenol) 650 mg PO Q4H PRN PRN Reason: Headache/Fever or Pain Hydrocodone Bitart/Acetaminophen ([place] 5/325) 1 tab PO Q4H PRN PRN Reason: Moderate Pain (4-6) Last Admin: 04/09/18 08:34 Dose: 1 tab Al Hydroxide/Mg Hydroxide (Maalox) 30 ml PO Q6H PRN PRN Reason: Heartburn or Indigestion Artificial Tears (Tears Naturale) 0 drop EA EYE PRN PRN PRN Reason: Dry Eyes Aspirin (Aspirin Chewable) 81 mg PO DAILY [facility] Last Admin: 04/09/18 08:33 Dose: 81 mg Atorvastatin Calcium (Lipitor) 10 mg PO HS [facility] Last Admin: 04/08/18 21:13 Dose: 10 mg Captopril (Capoten) 25 mg PO BID-AC [facility] Last Admin: 04/09/18 08:33 Dose: 25 mg Dextrose/Water (Dextrose 50%) 25 gm SLOW IVP PRN PRN PRN Reason: Hypoglycemia Docusate Sodium (Colace) 100 mg PO BID [facility] Last Admin: 04/09/18 08:34 Dose: 100 mg Enoxaparin Sodium (Lovenox) 40 mg SC 0900 [facility] Last Admin: 04/09/18 08:34 Dose: 40 mg Famotidine (Pepcid) 20 mg PO BID [facility] Last Admin: 04/09/18 08:34 Dose: 20 mg Glucagon (Glucagon) 1 mg IM PRN PRN PRN Reason: Hypoglycemia Guaifenesin (Robitussin Sf) 200 mg PO Q4H PRN PRN Reason: Cough Hydralazine HCl (Apresoline) 10 mg SLOW IVP Q4H PRN PRN Reason: Systolic BP > 180 Last Admin: 04/08/18 21:20 Dose: 10 mg Dextrose/Water (D5w) 1,000 mls @ 0 mls/hr IV .Q0M PRN; As Directed PRN Reason: Hypoglycemia Piperacillin Sod/Tazobactam (Sod 4.5 gm/ Sodium Chloride) 100 mls @ 200 mls/hr IVPB Q6HR [facility] Last Admin: 04/09/18 11:35 Dose: 100 mls Vancomycin HCl 1.5 gm/ Sodium (Chloride) 300 mls @ 200 mls/hr IVPB 0400,1600 [facility] Last Admin: 04/09/18 03:32 Dose: 300 mls Insulin Human Lispro (Humalog) 0 units SC .MODERATE SLIDING SC PRN PRN Reason: Moderate Correctional Scale Last Admin: 04/09/18 11:36 Dose: 6 unit Insulin Human Lispro (Humalog) 0 units SC .BEDTIME SLIDING SC PRN PRN Reason: Bedtime Correctional Scale Last Admin: 04/08/18 21:18 Dose: 3 unit Labetalol HCl (Normodyne) 20 mg SLOW IVP Q4H PRN PRN Reason: Systolic BP > 180 Loperamide HCl (Imodium) 2 mg PO PRN PRN PRN Reason: Diarrhea/Loose Stools Loratadine (Claritin) 10 mg PO DAILYPRN PRN PRN Reason: Sinus Symptoms Magnesium Hydroxide (Milk Of Magnesium) 30 ml PO DAILYPRN PRN PRN Reason: Constipation Metformin HCl (Glucophage) 500 mg PO BID[facility] Last Admin: 04/09/18 08:33 Dose: 500 mg Mineral Oil/White Petrolatum (Eucerin Cream) 0 gm TOP BIDPRN PRN PRN Reason: Dry Skin Miscellaneous Medication (Pharmacy To Dose) 1 each IVPB ONE PRN PRN Reason: Pharmacy to dose Stop: 05/06/18 17:27 Morphine Sulfate (Morphine) 2 mg SLOW IVP Q4H PRN PRN Reason: Pain Last Admin: 04/09/18 11:34 Dose: 2 mg Ondansetron HCl (Zofran Odt) 4 mg PO Q6H PRN PRN Reason: Nausea/Vomiting Last Admin: 04/08/18 21:16 Dose: 4 mg Ondansetron HCl (Zofran) 4 mg IVP Q6H PRN PRN Reason: Nausea/Vomiting Phenol (Chloraseptic [place] 180 Ml Bot) 0 ml PO PRN PRN PRN Reason: Sore Throat Polyethylene Glycol (Miralax) 17 gm PO DAILY [facility] Last Admin: 04/09/18 08:34 Dose: 17 gm Saccharomyces Boulardii (Florastor) 250 mg PO DAILY [facility] Last Admin: 04/09/18 08:33 Dose: 250 mg Senna (Senokot) 2 tab PO HSPRN PRN PRN Reason: Constipation Sodium Chloride ([place] Nasal [place] 0.65%) 0 ml EA NARE QIDPRN PRN PRN Reason: Nasal Congestion Sodium Chloride (Flush - Normal Saline) 10 ml IVF Q12HR [facility] Last Admin: 04/09/18 08:37 Dose: 10 ml Sodium Chloride (Flush - Normal Saline) 10 ml IVF PRN PRN PRN Reason: Saline Flush Zolpidem Tartrate (Ambien) 5 mg PO HSPRN PRN PRN Reason: Insomnia Last Admin: 04/07/18 21:17 Dose: 5 mg
[2018-04-09] MEDS ORDERED: Vancomycin HCl 1.75 GM in Sodium Chloride 0.9% 500 ML IVPB SCH (16:00)
[2018-04-09] MEDS: hydrALAZINE 20 MG/ML VIAL SLOW IVP PRN ×2 (17:01→20:26)
--- NOTE | 2018-04-09 18:24 | PDOC.GSPN ---
Surgery Progress Note: Subj - Subjective Narrative: Patient feels okay. He is not having much pain in his foot. The wound was examined with the wound care team. There was a little bit of slough under the skin bridge which was sharply excised but the wound looks fairly clean and there was no expressible purulence or odor. Assessment/plan: Status post drainage of right foot abscess. VAC dressing was replaced. Irrigation was discontinued. He will require a VAC dressing for home and long-term antibiotics. Surgery Progress Note: Obj - Vital signs Vital signs: Vital Signs - Most Recent Temp Pulse Resp BP Pulse Ox 97.8 F 79 20 177/85 H 96 04/09/18 16:16 04/09/18 17:01 04/09/18 16:16 04/09/18 18:00 04/09/18 16:16 Surgery Progress Note: Results - Labs Result Diagrams: 04/07/18 04:08 04/07/18 04:08 Lab results: Laboratory Results - last 24 hr 04/09/18 04/09/18 04/09/18 05:31 11:08 14:53 POC Glucose 184 H 271 H Vancomycin Trough 11.0 04/09/18 16:20 POC Glucose 189 H Vancomycin Trough
[2018-04-09] MEDS: Cipro 250 MG TAB PO SCH (20:14)
[2018-04-09] MEDS: Atorvastatin Calcium 10 MG TAB PO SCH (20:14)
--- NOTE | 2018-04-09 21:18 | PRG ---
DATE OF SERVICE: 04/09/2018 SUBJECTIVE: Still a little bit of pain in the right foot, status post I&D. The surgical report was reviewed and there did not appear to be any penetration into the joint, bone or tendon. No headaches , no visual symptoms, sore throat, odynophagia, or dysphagia. No diarrhea, no genitourinary symptoms . OBJECTIVE: VITAL SIGNS: T-max 97.8. GENERAL: Awake, alert, oriented. LUNGS: Clear. CARDIOVASCULAR: S1, S2, regular rate. ABDOMEN: Soft and not distended. EXTREMITIES: Right foot with negative pressure dressing. LABORATORY DATA: White cell count at 12.9, hemoglobin 14, platelets 311, 66% neutrophils. Creatinin e 0.84. Microbiology with Enterobacter cloacae with very broad susceptibility profile including tanya olones. There is a mold as well as the dust in rare amount probably contaminant. ASSESSMENT AND DISCUSSION: Type 2 diabetes, perforating injury right forefoot with abscess without e vidence of bone or joint involvement, a very broadly susceptible Enterobacter species isolated from t he site. We will transition the patient to oral ciprofloxacin. Prepare for discharge planning maybe tomorrow. Treat for about 2 weeks. Follow up in the clinic.
[2018-04-09] MEDS: Ondansetron ODT 4 MG TAB PO PRN (21:51)
[2018-04-10] MEDS: Mag-Al 1200 mg/1200 mg/30 ML UDCUP PO PRN ×2 (04:29→20:08)
[2018-04-10] MEDS: HYDROcodone/Acetaminophen 5/325 mg Tablet PO PRN ×2 (04:29→20:06)
[2018-04-10] MEDS: Cipro 250 MG TAB PO SCH ×2 (04:30→20:05)
[2018-04-10] MEDS: Ondansetron ODT 4 MG TAB PO PRN ×2 (04:33→11:03)
[2018-04-10] MEDS: HumaLOG 300 UNITS/3 ML VIAL SC PRN ×4 (06:22→20:39)
[2018-04-10] MEDS: metFORMIN 500 MG TAB PO SCH ×2 (07:26→15:36)
[2018-04-10] MEDS: Saccharomyces boulardii 250 MG CAP PO SCH (07:26)
--- NOTE | 2018-04-10 10:25 | PDOC.PN ---
- Subjective Encounter Start Date: 04/10/18 Encounter Start Time: 09:55 Patient seen and examined. No new complaints. No overnight events - Objective Resuscitation Status: Resuscitation Status FULL:Full Resuscitation MAR Reviewed: Yes Vital Signs & Weight: Vital Signs (12 hours) Temp Pulse Resp BP BP Pulse Ox 04/10/18 08:00 97.6 F 88 14 95 04/10/18 07:59 97.6 F 88 14 172/89 H 93 L 04/10/18 07:31 98.3 F 91 18 168/72 H 04/10/18 07:25 91 168/84 H 04/10/18 05:46 98.4 F 95 18 160/77 H 95 04/10/18 02:06 95 04/10/18 00:19 98.5 F 91 18 155/78 H 94 L Weight Admit Weight 155 lb Weight 155 lb I&O: 04/09/18 04/10/18 04/11/18 06:59 06:59 06:59 Intake Total 2400 1000 Output Total 1300 1650 Balance 1100 -650 Result Diagrams: 04/07/18 04:08 04/07/18 04:08 Additional Labs: Accuchecks 04/10/18 04/09/18 04/09/18 05:01 20:19 16:20 POC Glucose 232 H 237 H 189 H 04/09/18 11:08 POC Glucose 271 H Phys Exam - Physical Examination Constitutional: NAD HEENT: PERRLA, moist MMs, sclera anicteric Neck: no JVD, supple Respiratory: no wheezing, no rales, no rhonchi Cardiovascular: RRR, no significant murmur, no rub Gastrointestinal: soft, non-tender, no distention, positive bowel sounds Musculoskeletal: no edema, pulses present right foot with wound vac in place Neurological: non-focal, normal sensation, moves all 4 limbs Psychiatric: normal affect, A&O x 3 Skin: no rash, normal turgor Dx/Plan (1) Diabetic foot infection Code(s): E11.628 - TYPE 2 DIABETES MELLITUS WITH OTHER SKIN COMPLICATIONS; L08.9 - LOCAL INFECTION OF THE SKIN AND SUBCUTANEOUS TISSUE, UNSP Status: Acute Comment: s/p I & D (2) Failure of outpatient treatment Code(s): Z78.9 - OTHER SPECIFIED HEALTH STATUS Status: Acute (3) DM2 (diabetes mellitus, type 2) Status: Chronic (4) Dyslipidemia Code(s): E78.5 - HYPERLIPIDEMIA, UNSPECIFIED Status: Chronic (5) HTN (hypertension) Code(s): I10 - ESSENTIAL (PRIMARY) HYPERTENSION Status: Chronic - Plan cont current plan of care, plan discussed w/ family, continue antibiotics, child welfare social worker * home health arranged for wound care. * wound vac needs to be arranged * continue oral cipro as per ID team * pain control * discussed with bottle caser and family * medication reviewed as below * symptomatic treatment Review of Systems - Review of Systems Eyes: negative: Pain, Vision Change, Conjunctivae Inflammation, Eyelid Inflammation, Redness, Other ENT: negative: Ear Pain, Ear Discharge, Nose Pain, Nose Discharge, Nose Congestion, Mouth Pain, Mouth Swelling, Throat Pain, Throat Swelling, Other Respiratory: negative: Cough, Dry, Shortness of Breath, Hemoptysis, SOB with Excertion, Pleuritic Pain, Sputum, Wheezing Cardiovascular: negative: chest pain, palpitations, orthopnea, paroxysmal nocturnal dyspnea, edema, light headedness, other Gastrointestinal: negative: Nausea, Vomiting, Abdominal Pain, Diarrhea, Constipation, Melena, Hematochezia, Other Genitourinary: negative: Dysuria, Frequency, Incontinence, Hematuria, Retention , Other Musculoskeletal: Foot Pain. negative: Neck Pain, Shoulder Pain, Arm Pain, Back Pain, Hand Pain, Leg Pain, Other Skin: negative: Rash, Lesions, Tulio, Bruising, Other - Medications/Allergies Allergies/Adverse Reactions: Allergies Allergy/AdvReac Type Severity Reaction Status Date / Time No Known Drug Allergies Allergy Verified 06/13/17 21:20 Medications: Current Medications Acetaminophen (Tylenol) 650 mg PO Q4H PRN PRN Reason: Headache/Fever or Pain Hydrocodone Bitart/Acetaminophen ([place] 5/325) 1 tab PO Q4H PRN PRN Reason: Moderate Pain (4-6) Last Admin: 04/10/18 04:29 Dose: 1 tab Al Hydroxide/Mg Hydroxide (Maalox) 30 ml PO Q6H PRN PRN Reason: Heartburn or Indigestion Last Admin: 04/10/18 04:29 Dose: 30 ml Artificial Tears (Tears Naturale) 0 drop EA EYE PRN PRN PRN Reason: Dry Eyes Aspirin (Aspirin Chewable) 81 mg PO DAILY [facility] Last Admin: 04/09/18 08:33 Dose: 81 mg Atorvastatin Calcium (Lipitor) 10 mg PO [facility] Last Admin: 04/09/18 20:14 Dose: 10 mg Captopril (Capoten) 25 mg PO BID[facility] Last Admin: 04/10/18 07:25 Dose: 25 mg Ciprofloxacin (Cipro) 500 mg PO BID@0600,2000 [facility] Last Admin: 04/10/18 04:30 Dose: 500 mg Dextrose/Water (Dextrose 50%) 25 gm SLOW IVP PRN PRN PRN Reason: Hypoglycemia Docusate Sodium (Colace) 100 mg PO BID [facility] Last Admin: 04/09/18 20:14 Dose: 100 mg Enoxaparin Sodium (Lovenox) 40 mg SC 0900 [facility] Last Admin: 04/09/18 08:34 Dose: 40 mg Famotidine (Pepcid) 20 mg PO BID [facility] Last Admin: 04/09/18 20:14 Dose: 20 mg Glucagon (Glucagon) 1 mg IM PRN PRN PRN Reason: Hypoglycemia Guaifenesin (Robitussin Sf) 200 mg PO Q4H PRN PRN Reason: Cough Hydralazine HCl (Apresoline) 10 mg SLOW IVP Q4H PRN PRN Reason: Systolic BP > 180 Last Admin: 04/09/18 20:26 Dose: 10 mg Dextrose/Water (D5w) 1,000 mls @ 0 mls/hr IV .Q0M PRN; As Directed PRN Reason: Hypoglycemia Insulin Glargine 25 units/ (Miscellaneous Medication) 0.25 mls @ 0 mls/hr SC [facility] Insulin Human Lispro (Humalog) 0 units SC .MODERATE SLIDING SC PRN PRN Reason: Moderate Correctional Scale Last Admin: 04/10/18 06:22 Dose: 4 unit Insulin Human Lispro (Humalog) 0 units SC .BEDTIME SLIDING SC PRN PRN Reason: Bedtime Correctional Scale Last Admin: 04/09/18 20:26 Dose: 3 unit Labetalol HCl (Normodyne) 20 mg SLOW IVP Q4H PRN PRN Reason: Systolic BP > 180 Loperamide HCl (Imodium) 2 mg PO PRN PRN PRN Reason: Diarrhea/Loose Stools Loratadine (Claritin) 10 mg PO DAILYPRN PRN PRN Reason: Sinus Symptoms Magnesium Hydroxide (Milk Of Magnesium) 30 ml PO DAILYPRN PRN PRN Reason: Constipation Metformin HCl (Glucophage) 500 mg PO BID-[facility] Last Admin: 04/10/18 07:26 Dose: 500 mg Mineral Oil/White Petrolatum (Eucerin Cream) 0 gm TOP BIDPRN PRN PRN Reason: Dry Skin Miscellaneous Medication (Pharmacy To Dose) 1 each IVPB ONE PRN PRN Reason: Pharmacy to dose Stop: 05/06/18 17:27 Morphine Sulfate (Morphine) 2 mg SLOW IVP Q4H PRN PRN Reason: Pain Last Admin: 04/09/18 18:01 Dose: 2 mg Ondansetron HCl (Zofran Odt) 4 mg PO Q6H PRN PRN Reason: Nausea/Vomiting Last Admin: 04/10/18 04:33 Dose: 4 mg Ondansetron HCl (Zofran) 4 mg IVP Q6H PRN PRN Reason: Nausea/Vomiting Phenol (Chloraseptic [place] 180 Ml Bot) 0 ml PO PRN PRN PRN Reason: Sore Throat Polyethylene Glycol (Miralax) 17 gm PO DAILY [facility] Last Admin: 04/09/18 08:34 Dose: 17 gm Saccharomyces Boulardii (Florastor) 250 mg PO DAILY [facility] Last Admin: 04/10/18 07:26 Dose: 250 mg Senna (Senokot) 2 tab PO HSPRN PRN PRN Reason: Constipation Sodium Chloride ([place] Nasal [place] 0.65%) 0 ml EA NARE QIDPRN PRN PRN Reason: Nasal Congestion Sodium Chloride (Flush - Normal Saline) 10 ml IVF Q12HR [facility] Last Admin: 04/09/18 20:15 Dose: 10 ml Sodium Chloride (Flush - Normal Saline) 10 ml IVF PRN PRN PRN Reason: Saline Flush Zolpidem Tartrate (Ambien) 5 mg PO HSPRN PRN PRN Reason: Insomnia Last Admin: 04/07/18 21:17 Dose: 5 mg
[2018-04-10] MEDS: Docusate 100 MG CAP PO SCH ×2 (10:59→20:05)
[2018-04-10] MEDS: Enoxaparin Sodium 40 MG/0.4 ML SYRINGE SC SCH (10:59)
[2018-04-10] MEDS: Famotidine 20 MG TAB PO SCH ×2 (10:59→20:05)
[2018-04-10] MEDS: Polyethylene Glycol 3350 17 GM Packet PO SCH (10:59)
--- NOTE | 2018-04-10 11:11 | PQF ---
CLINICAL DOCUMENTATION IMPROVEMENT CLARIFICATION FORM: ICD-10 Updated PLEASE DO AN ADDENDUM TO THE PROGRESS NOTE WITH ANY DOCUMENTATION UPDATES OR ADDITIONS AND CARRY THROUGH TO DC SUMMARY. THANK YOU. DATE: 04/10 ATTN: DR. GUI MURRAY Please exercise your independent, professional judgment in responding to the clarification form. Clinical indicators are provided on the bottom of this form for your review. Please check appropriate box(s) to clarify if the following diagnosis has been ruled in or ruled out: MILD SEPSIS D/T PROBLEM #1 [ X ] Ruled in diagnosis [ ] Continue to treat [ X ] Resolved [ ] Ruled out diagnosis [ ] Other diagnosis [ ] Unable to determine For continuity of documentation, please document condition throughout progress notes and discharge summary. Thank You. CLINICAL INDICATORS - SIGNS / SYMPTOMS / LABS ER PRESENTATION 04/06: HR: 99 WBC: 12.4 CRP: 4.04 PHYSICIAN H&P DOCUMENTATION 04/06: ASSESSMENT/PLAN: 1) R DIABETIC FOOT INFECTION; 3) MILD SEPSIS D/T PROBLEM 1 NO FURTHER MENTION OF SEPSIS TO DATE RISK FACTORS: R DIABETIC FOOT ABSCESS R FOOT CX: ENTEROBACTER CLOACAE COMPLEX UNCONTROLLED DM II TREATMENTS: GENERAL SURGERY CONSULT R FOOT EXCISIONAL DEBRIDEMENT (04/07) INFECTIOUS DX CONSULT IV ANTIBIOTICS (PIPERACILLIN & VANCOMYCIN 04/06 - ) PO CIPRO (04/09 - PRESENT) THANK YOU! Erica (This form is maintained as a part of the permanent medical record) 2014 [employer]. All Rights Reserved [facility]
--- NOTE | 2018-04-10 15:06 | PDOC.GSPN ---
Surgery Progress Note: Subj - Subjective Narrative: Patient had sharp pain in his foot after the VAC change yesterday but that has eased off. He is afebrile and has widely sensitive Enterobacter on his cultures. He is awaiting approval for his home VAC. Surgically he is stable for discharge once this has been arranged. I will see him next week in the wound care center. Surgery Progress Note: Obj - Vital signs Vital signs: Vital Signs - Most Recent Temp Pulse Resp BP Pulse Ox 97.6 F 88 14 172/89 H 95 04/10/18 08:00 04/10/18 08:00 04/10/18 08:00 04/10/18 07:59 04/10/18 08:00 Surgery Progress Note: Results - Labs Result Diagrams: 04/07/18 04:08 04/07/18 04:08 Lab results: Laboratory Results - last 24 hr 04/10/18 04/10/18 05:01 11:19 POC Glucose 232 H 230 H
[2018-04-10] MEDS: Atorvastatin Calcium 10 MG TAB PO SCH (20:05)
[2018-04-10] MEDS: Insulin Glargine 25 UNITS in Pre-Filled Syringe 1 EACH SC SCH (20:40)
[2018-04-10] MEDS ORDERED: Non-Formulary Item 1 EACH (Levemir Flexpen [Levemir Flexpen] 25 UNIT) SC SCH (21:00)
[2018-04-11] MEDS: HYDROcodone/Acetaminophen 5/325 mg Tablet PO PRN ×3 (04:42→15:22)
[2018-04-11] MEDS: Cipro 250 MG TAB PO SCH ×2 (05:35→20:11)
[2018-04-11] MEDS: HumaLOG 300 UNITS/3 ML VIAL SC PRN ×4 (05:37→20:16)
[2018-04-11] MEDS: Famotidine 20 MG TAB PO SCH (07:54)
[2018-04-11] MEDS: Saccharomyces boulardii 250 MG CAP PO SCH (07:54)
[2018-04-11] MEDS: Docusate 100 MG CAP PO SCH ×2 (07:54→20:11)
[2018-04-11] MEDS: Enoxaparin Sodium 40 MG/0.4 ML SYRINGE SC SCH (07:55)
[2018-04-11] MEDS: metFORMIN 500 MG TAB PO SCH (07:56)
[2018-04-11] MEDS: Polyethylene Glycol 3350 17 GM Packet PO SCH (08:02)
[2018-04-11 08:38] LABS: #Basophils 0.1 thou/uL (0.0-0.2); #Eosinphils 0.1 thou/uL (0.0-0.7); #Monocytes 1.4 thou/uL (0.11-0.59); #Neutrophils 9.4 thou/uL (1.40-6.50); %Basophils 0.4 % (0.0-1.0); %Eosinophils 0.5 % (0.0-10.0); %Lymphocytes 15.9 % (21.0-51.0); %Monocytes 10.4 % (0.0-10.0); %Neutrophils 72.8 % (42.0-75.0); Hemoglobin 14.7 g/dL (14.0-18.0); Mean Corpuscular HGB CONC 35.8 g/dL (32.0-36.0); Mean Corpuscular Hemoglobin 30.7 pg (27.0-31.0); Mean Corpuscular Volume 85.7 fL (78.0-98.0); Mean Platelet Volume 6.9 fL (7.4-10.4); Platelet Count 315 thou/uL (130-400); RBC Distribution Width 10.8 % (11.5-14.5); White Blood Cell (WBC) Count 12.9 thou/uL (4.8-10.8)
[2018-04-11 09:01] LABS: Anion Gap 12 mmol/L (10-20); BUN (Urea Nitrogen) 27 mg/dL (8.4-25.7); CRP (Inflammatory) 5.82 mg/dL (= or < 0.5); Calc. Creatinine Clearance 28 mL/min (70-130); Calcium 9.2 mg/dL (7.8-10.44); Carbon Dioxide 26 mmol/L (22-29); Chloride 98 mmol/L (98-107); Estimated GFR-MDRD 23; Glucose 223 mg/dL (70-105); Potassium 4.2 mmol/L (3.5-5.1); Sodium 132 mmol/L (136-145)
[2018-04-11] MEDS ORDERED: Amlodipine 10 MG TAB PO SCH (09:45)
--- NOTE | 2018-04-11 10:48 | PDOC.PN ---
- Subjective Encounter Start Date: 04/11/18 Encounter Start Time: 08:40 Patient seen and examined. No new complaints. No overnight events - Objective Resuscitation Status: Resuscitation Status FULL:Full Resuscitation MAR Reviewed: Yes Vital Signs & Weight: Vital Signs (12 hours) Temp Pulse Resp BP BP Pulse Ox 04/11/18 08:00 97.7 F 80 20 95 04/11/18 07:53 80 181/104 H 04/11/18 07:32 97.7 F 80 16 193/93 H 95 04/11/18 04:00 98.2 F 78 18 165/83 H 95 04/10/18 23:42 98.5 F 85 18 159/80 H 96 Weight Admit Weight 155 lb Weight 155 lb I&O: 04/10/18 04/11/18 04/12/18 06:59 06:59 06:59 Intake Total 1000 1500 Output Total 1650 800 Balance -650 700 Result Diagrams: 04/11/18 08:17 04/11/18 08:17 Additional Labs: Accuchecks 04/11/18 04/10/18 04/10/18 05:37 20:16 16:30 POC Glucose 282 H 234 H 240 H 04/10/18 11:19 POC Glucose 230 H Phys Exam - Physical Examination Constitutional: NAD HEENT: PERRLA, moist MMs, sclera anicteric Neck: no JVD, supple Respiratory: no wheezing, no rales, no rhonchi Cardiovascular: RRR, no significant murmur, no rub Gastrointestinal: soft, non-tender, no distention, positive bowel sounds right foot with wound vac in place Neurological: non-focal, normal sensation Lymphatic: no nodes Psychiatric: normal affect, A&O x 3 Skin: no rash, normal turgor Dx/Plan (1) Diabetic foot infection Code(s): E11.628 - TYPE 2 DIABETES MELLITUS WITH OTHER SKIN COMPLICATIONS; L08.9 - LOCAL INFECTION OF THE SKIN AND SUBCUTANEOUS TISSUE, UNSP Status: Acute Comment: s/p I & D (2) Failure of outpatient treatment Code(s): Z78.9 - OTHER SPECIFIED HEALTH STATUS Status: Acute (3) DM2 (diabetes mellitus, type 2) Status: Chronic (4) Dyslipidemia Code(s): E78.5 - HYPERLIPIDEMIA, UNSPECIFIED Status: Chronic (5) HTN (hypertension) Code(s): I10 - ESSENTIAL (PRIMARY) HYPERTENSION Status: Chronic (6) Acute kidney failure Status: Acute - Plan cont current plan of care, plan discussed w/ family, continue antibiotics, social insurance analyst * await wound vac approval * today he has high creatinine so will hold on discharge and start IVF * DC metformin, captopril, * change lovenox dose * add amlodipine * change coreg 25 bid, add hydralazin 25 mg po tid * repeat labs tomorrow * he is not ready for discharge today. Review of Systems - Review of Systems Eyes: negative: Pain, Vision Change, Conjunctivae Inflammation, Eyelid Inflammation, Redness, Other ENT: negative: Ear Pain, Ear Discharge, Nose Pain, Nose Discharge, Nose Congestion, Mouth Pain, Mouth Swelling, Throat Pain, Throat Swelling, Other Respiratory: negative: Cough, Dry, Shortness of Breath, Hemoptysis, SOB with Excertion, Pleuritic Pain, Sputum, Wheezing Cardiovascular: negative: chest pain, palpitations, orthopnea, paroxysmal nocturnal dyspnea, edema, light headedness, other Gastrointestinal: negative: Nausea, Vomiting, Abdominal Pain, Diarrhea, Constipation, Melena, Hematochezia, Other Genitourinary: negative: Dysuria, Frequency, Incontinence, Hematuria, Retention , Other Musculoskeletal: Foot Pain. negative: Neck Pain, Shoulder Pain, Arm Pain, Back Pain, Hand Pain, Leg Pain, Other Skin: negative: Rash, Lesions, Tulio, Bruising, Other - Medications/Allergies Allergies/Adverse Reactions: Allergies Allergy/AdvReac Type Severity Reaction Status Date / Time No Known Drug Allergies Allergy Verified 06/13/17 21:20 Medications: Current Medications Acetaminophen (Tylenol) 650 mg PO Q4H PRN PRN Reason: Headache/Fever or Pain Hydrocodone Bitart/Acetaminophen ([place] 5/325) 1 tab PO Q4H PRN PRN Reason: Moderate Pain (4-6) Last Admin: 04/11/18 04:42 Dose: 1 tab Al Hydroxide/Mg Hydroxide (Maalox) 30 ml PO Q6H PRN PRN Reason: Heartburn or Indigestion Last Admin: 04/10/18 20:08 Dose: 30 ml Amlodipine Besylate (Norvasc) 10 mg PO DAILY [facility] Artificial Tears (Tears Naturale) 0 drop EA EYE PRN PRN PRN Reason: Dry Eyes Aspirin (Aspirin Chewable) 81 mg PO DAILY [facility] Last Admin: 04/11/18 07:56 Dose: 81 mg Atorvastatin Calcium (Lipitor) 10 mg PO [facility] Last Admin: 04/10/18 20:05 Dose: 10 mg Carvedilol (Coreg) 25 mg PO BID-[facility] Ciprofloxacin (Cipro) 500 mg PO BID@0600,1999 [facility] Last Admin: 04/11/18 05:35 Dose: 500 mg Dextrose/Water (Dextrose 50%) 25 gm SLOW IVP PRN PRN PRN Reason: Hypoglycemia Docusate Sodium (Colace) 100 mg PO BID [facility] Last Admin: 04/11/18 07:54 Dose: 100 mg Enoxaparin Sodium (Lovenox) 30 mg SC 0900 [facility] Glucagon (Glucagon) 1 mg IM PRN PRN PRN Reason: Hypoglycemia Guaifenesin (Robitussin Sf) 200 mg PO Q4H PRN PRN Reason: Cough Hydralazine HCl (Apresoline) 10 mg SLOW IVP Q4H PRN PRN Reason: Systolic BP > 180 Last Admin: 04/09/18 20:26 Dose: 10 mg Hydralazine HCl (Apresoline) 25 mg PO TID [facility] Dextrose/Water (D5w) 1,000 mls @ 0 mls/hr IV .Q0M PRN; As Directed PRN Reason: Hypoglycemia Insulin Glargine 25 units/ (Miscellaneous Medication) 0.25 mls @ 0 mls/hr SC [facility] Last Admin: 04/10/18 20:40 Dose: 0.25 mls Sodium Chloride (Normal Saline 0.9%) 1,000 mls @ 100 mls/hr IV .Q10H [facility] Insulin Human Lispro (Humalog) 0 units SC .MODERATE SLIDING SC PRN PRN Reason: Moderate Correctional Scale Last Admin: 04/11/18 05:37 Dose: 6 unit Insulin Human Lispro (Humalog) 0 units SC .BEDTIME SLIDING SC PRN PRN Reason: Bedtime Correctional Scale Last Admin: 04/10/18 20:39 Dose: 2 unit Labetalol HCl (Normodyne) 20 mg SLOW IVP Q4H PRN PRN Reason: Systolic BP > 180 Loperamide HCl (Imodium) 2 mg PO PRN PRN PRN Reason: Diarrhea/Loose Stools Loratadine (Claritin) 10 mg PO DAILYPRN PRN PRN Reason: Sinus Symptoms Magnesium Hydroxide (Milk Of Magnesium) 30 ml PO DAILYPRN PRN PRN Reason: Constipation Mineral Oil/White Petrolatum (Eucerin Cream) 0 gm TOP BIDPRN PRN PRN Reason: Dry Skin Morphine Sulfate (Morphine) 2 mg SLOW IVP Q4H PRN PRN Reason: Pain Last Admin: 04/11/18 09:14 Dose: 2 mg Ondansetron HCl (Zofran Odt) 4 mg PO Q6H PRN PRN Reason: Nausea/Vomiting Last Admin: 04/10/18 11:03 Dose: 4 mg Ondansetron HCl (Zofran) 4 mg IVP Q6H PRN PRN Reason: Nausea/Vomiting Pantoprazole Sodium (Protonix) 40 mg PO DAILY [facility] Phenol (Chloraseptic [place] 180 Ml Bot) 0 ml PO PRN PRN PRN Reason: Sore Throat Polyethylene Glycol (Miralax) 17 gm PO DAILY [facility] Last Admin: 04/11/18 08:02 Dose: 17 gm Saccharomyces Boulardii (Florastor) 250 mg PO DAILY [facility] Last Admin: 04/11/18 07:54 Dose: 250 mg Senna (Senokot) 2 tab PO HSPRN PRN PRN Reason: Constipation Sodium Chloride ([place] Nasal [place] 0.65%) 0 ml EA NARE QIDPRN PRN PRN Reason: Nasal Congestion Sodium Chloride (Flush - Normal Saline) 10 ml IVF Q12HR [facility] Last Admin: 04/11/18 07:57 Dose: 10 ml Sodium Chloride (Flush - Normal Saline) 10 ml IVF PRN PRN PRN Reason: Saline Flush Zolpidem Tartrate (Ambien) 5 mg PO HSPRN PRN PRN Reason: Insomnia Last Admin: 04/07/18 21:17 Dose: 5 mg
[2018-04-11] MEDS: Sodium Chloride 0.9% 1,000 ML IV SCH ×2 (10:57→20:09)
[2018-04-11] MEDS: hydrALAZINE 25 MG TAB PO SCH ×2 (15:18→20:11)
[2018-04-11] MEDS: Carvedilol 6.25 MG TAB PO SCH (15:19)
[2018-04-11] MEDS: Atorvastatin Calcium 10 MG TAB PO SCH (20:11)
[2018-04-11] MEDS: Insulin Glargine 25 UNITS in Pre-Filled Syringe 1 EACH SC SCH (20:15)
[2018-04-11] MEDS: Mag-Al 1200 mg/1200 mg/30 ML UDCUP PO PRN (20:19)
[2018-04-12 04:48] LABS: #Basophils 0.1 thou/uL (0.0-0.2); #Eosinphils 0.2 thou/uL (0.0-0.7); #Monocytes 1.3 thou/uL (0.11-0.59); #Neutrophils 8.9 thou/uL (1.40-6.50); %Basophils 0.4 % (0.0-1.0); %Eosinophils 1.6 % (0.0-10.0); %Lymphocytes 16.2 % (21.0-51.0); %Monocytes 10.1 % (0.0-10.0); %Neutrophils 71.7 % (42.0-75.0); Hemoglobin 13.1 g/dL (14.0-18.0); Mean Corpuscular HGB CONC 35.3 g/dL (32.0-36.0); Mean Corpuscular Hemoglobin 30.5 pg (27.0-31.0); Mean Corpuscular Volume 86.3 fL (78.0-98.0); Mean Platelet Volume 7.5 fL (7.4-10.4); Platelet Count 272 thou/uL (130-400); RBC Distribution Width 10.8 % (11.5-14.5); Red Blood Cell (RBC) Count 4.28 mill/uL (4.70-6.10); White Blood Cell (WBC) Count 12.4 thou/uL (4.8-10.8)
[2018-04-12 04:54] LABS: Anion Gap 10 mmol/L (10-20); BUN (Urea Nitrogen) 45 mg/dL (8.4-25.7); Calc. Creatinine Clearance 28 mL/min (70-130); Calcium 9.5 mg/dL (7.8-10.44); Carbon Dioxide 28 mmol/L (22-29); Chloride 97 mmol/L (98-107); Estimated GFR-MDRD 23; Glucose 256 mg/dL (70-105); Potassium 4.3 mmol/L (3.5-5.1); Sodium 131 mmol/L (136-145)
[2018-04-12] MEDS: Cipro 250 MG TAB PO SCH ×2 (05:19→20:07)
[2018-04-12] MEDS: Sodium Chloride 0.9% 1,000 ML IV SCH ×2 (05:20→14:51)
[2018-04-12] MEDS: HumaLOG 300 UNITS/3 ML VIAL SC PRN ×3 (05:21→20:09)
[2018-04-12] MEDS: Mag-Al 1200 mg/1200 mg/30 ML UDCUP PO PRN (06:25)
[2018-04-12] MEDS: Amlodipine 10 MG TAB PO SCH (07:57)
[2018-04-12] MEDS: Carvedilol 6.25 MG TAB PO SCH ×2 (07:57→16:35)
[2018-04-12] MEDS: hydrALAZINE 25 MG TAB PO SCH ×3 (07:59→20:06)
[2018-04-12] MEDS: Saccharomyces boulardii 250 MG CAP PO SCH (07:59)
[2018-04-12] MEDS: Enoxaparin Sodium 30 MG/0.3 ML SYRINGE SC SCH (08:00)
[2018-04-12] MEDS: Polyethylene Glycol 3350 17 GM Packet PO SCH (08:00)
[2018-04-12 08:15] LABS: Uric Acid 5.5 mg/dL (3.5-7.2)
[2018-04-12 10:17] LABS: Bilirubin Negative (Negative); Blood, Urine Negative (Negative); Clarity CLEAR (Clear); Glucose, Urine (Dipstick) Negative (Negative); Leukocyte Negative (Negative); Nitrite Negative (Negative); Protein, Urine (Dipstick) Negative (Neg-Trace); Specific Gravity, Urine 1.008 (1.002-1.036); Urobilinogen 0.2 mg/dL (0.2-1.0)
[2018-04-12 10:21] LABS: Bacteria/HPF None Seen HPF (None Seen); Hyaline Casts/LPF 0-3 HYALINE CAST LPF (0-3 Hyaline); Pathc Cast-AUWi Flag 0.29 (0-2.49); RBC/HPF 0-3 HPF (0-3); Squamous Epithelial 0-3 HPF (0-3); WBC/HPF 0-3 HPF (0-3)
[2018-04-12 10:29] LABS: Creatinine, Urine 40.42 mg/dL (63-166); Protein, Urine Random Quant Less than 10 mg/dL; Sodium, Urine 27 mmol/L (Not Available)
[2018-04-12] MEDS: Docusate 100 MG CAP PO SCH ×2 (10:34→20:07)
--- NOTE | 2018-04-12 11:06 | PDOC.PN ---
- Subjective Encounter Start Date: 04/12/18 Encounter Start Time: 09:00 Patient seen and examined. No new complaints. No overnight events - Objective Resuscitation Status: Resuscitation Status FULL:Full Resuscitation MAR Reviewed: Yes Vital Signs & Weight: Vital Signs (12 hours) Temp Pulse Resp BP BP Pulse Ox 04/12/18 08:00 97.6 F 72 18 97 04/12/18 07:59 72 154/71 H 04/12/18 07:57 72 154/71 H 04/12/18 07:39 97.6 F 72 18 154/71 H 93 L 04/12/18 04:40 98.7 F 79 20 152/75 H 94 L 04/11/18 23:51 98.7 F 87 20 147/77 H 94 L Weight Admit Weight 155 lb Weight 155 lb I&O: 04/11/18 04/12/18 04/13/18 06:59 06:59 06:59 Intake Total 1500 4000 Output Total 800 1850 Balance 700 2150 Result Diagrams: 04/12/18 03:56 04/12/18 03:56 Additional Labs: Accuchecks 04/12/18 04/11/18 04/11/18 04:47 19:50 16:30 POC Glucose 226 H 247 H 245 H 04/11/18 11:20 POC Glucose 262 H Phys Exam - Physical Examination Constitutional: NAD HEENT: PERRLA, moist MMs, sclera anicteric Neck: no JVD, supple Respiratory: no wheezing, no rales, no rhonchi Cardiovascular: RRR, no significant murmur, no rub Gastrointestinal: soft, non-tender, no distention, positive bowel sounds Musculoskeletal: no edema, pulses present right foot with dressing wound vac+ Neurological: non-focal, normal sensation, moves all 4 limbs Lymphatic: no nodes Psychiatric: normal affect, A&O x 3 Skin: no rash, normal turgor Dx/Plan (1) Diabetic foot infection Code(s): E11.628 - TYPE 2 DIABETES MELLITUS WITH OTHER SKIN COMPLICATIONS; L08.9 - LOCAL INFECTION OF THE SKIN AND SUBCUTANEOUS TISSUE, UNSP Status: Acute Comment: s/p I & D (2) Failure of outpatient treatment Code(s): Z78.9 - OTHER SPECIFIED HEALTH STATUS Status: Acute (3) DM2 (diabetes mellitus, type 2) Status: Chronic (4) Dyslipidemia Code(s): E78.5 - HYPERLIPIDEMIA, UNSPECIFIED Status: Chronic (5) HTN (hypertension) Code(s): I10 - ESSENTIAL (PRIMARY) HYPERTENSION Status: Chronic (6) Acute kidney failure Status: Acute - Plan cont current plan of care, plan discussed w/ family, continue antibiotics, social worker masters * check UA, urine sodium, creatinine and protein * renal US * continue IVF * monitor renal function * medication reviewed as below * symptomatic treatment * discussed with * await wound vac arrangement. Review of Systems - Review of Systems Eyes: negative: Pain, Vision Change, Conjunctivae Inflammation, Eyelid Inflammation, Redness, Other ENT: negative: Ear Pain, Ear Discharge, Nose Pain, Nose Discharge, Nose Congestion, Mouth Pain, Mouth Swelling, Throat Pain, Throat Swelling, Other Respiratory: negative: Cough, Dry, Shortness of Breath, Hemoptysis, SOB with Excertion, Pleuritic Pain, Sputum, Wheezing Cardiovascular: negative: chest pain, palpitations, orthopnea, paroxysmal nocturnal dyspnea, edema, light headedness, other Gastrointestinal: negative: Nausea, Vomiting, Abdominal Pain, Diarrhea, Constipation, Melena, Hematochezia, Other Genitourinary: negative: Dysuria, Frequency, Incontinence, Hematuria, Retention , Other Musculoskeletal: negative: Neck Pain, Shoulder Pain, Arm Pain, Back Pain, Hand Pain, Leg Pain, Foot Pain, Other Skin: negative: Rash, Lesions, Tulio, Bruising, Other - Medications/Allergies Allergies/Adverse Reactions: Allergies Allergy/AdvReac Type Severity Reaction Status Date / Time No Known Drug Allergies Allergy Verified 06/13/17 21:20 Medications: Current Medications Acetaminophen (Tylenol) 650 mg PO Q4H PRN PRN Reason: Headache/Fever or Pain Hydrocodone Bitart/Acetaminophen ([place] 5/325) 1 tab PO Q4H PRN PRN Reason: Moderate Pain (4-6) Last Admin: 04/11/18 15:22 Dose: 1 tab Al Hydroxide/Mg Hydroxide (Maalox) 30 ml PO Q6H PRN PRN Reason: Heartburn or Indigestion Last Admin: 04/12/18 06:25 Dose: 30 ml Amlodipine Besylate (Norvasc) 10 mg PO DAILY [facility] Last Admin: 04/12/18 07:57 Dose: 10 mg Artificial Tears (Tears Naturale) 0 drop EA EYE PRN PRN PRN Reason: Dry Eyes Aspirin (Aspirin Chewable) 81 mg PO DAILY [facility] Last Admin: 04/12/18 07:59 Dose: 81 mg Atorvastatin Calcium (Lipitor) 10 mg PO [facility] Last Admin: 04/11/18 20:11 Dose: 10 mg Carvedilol (Coreg) 25 mg PO BID-[facility] Last Admin: 04/12/18 07:57 Dose: 25 mg Ciprofloxacin (Cipro) 250 mg PO BID@0600,2000 [facility] Dextrose/Water (Dextrose 50%) 25 gm SLOW IVP PRN PRN PRN Reason: Hypoglycemia Docusate Sodium (Colace) 100 mg PO BID [facility] Last Admin: 04/12/18 10:34 Dose: Not Given Enoxaparin Sodium (Lovenox) 30 mg SC 0900 [facility] Last Admin: 04/12/18 08:00 Dose: 30 mg Glucagon (Glucagon) 1 mg IM PRN PRN PRN Reason: Hypoglycemia Guaifenesin (Robitussin Sf) 200 mg PO Q4H PRN PRN Reason: Cough Hydralazine HCl (Apresoline) 10 mg SLOW IVP Q4H PRN PRN Reason: Systolic BP > 180 Last Admin: 04/09/18 20:26 Dose: 10 mg Hydralazine HCl (Apresoline) 25 mg PO TID [facility] Last Admin: 04/12/18 07:59 Dose: 25 mg Dextrose/Water (D5w) 1,000 mls @ 0 mls/hr IV .Q0M PRN; As Directed PRN Reason: Hypoglycemia Insulin Glargine 25 units/ (Miscellaneous Medication) 0.25 mls @ 0 mls/hr SC [facility] Last Admin: 04/11/18 20:15 Dose: 0.25 mls Sodium Chloride (Normal Saline 0.9%) 1,000 mls @ 100 mls/hr IV .Q10H [facility] Last Admin: 04/12/18 05:20 Dose: 1,000 mls Insulin Human Lispro (Humalog) 0 units SC .MODERATE SLIDING SC PRN PRN Reason: Moderate Correctional Scale Last Admin: 04/12/18 05:21 Dose: 4 unit Insulin Human Lispro (Humalog) 0 units SC .BEDTIME SLIDING SC PRN PRN Reason: Bedtime Correctional Scale Last Admin: 04/11/18 20:16 Dose: 2 unit Labetalol HCl (Normodyne) 20 mg SLOW IVP Q4H PRN PRN Reason: Systolic BP > 180 Loperamide HCl (Imodium) 2 mg PO PRN PRN PRN Reason: Diarrhea/Loose Stools Loratadine (Claritin) 10 mg PO DAILYPRN PRN PRN Reason: Sinus Symptoms Magnesium Hydroxide (Milk Of Magnesium) 30 ml PO DAILYPRN PRN PRN Reason: Constipation Mineral Oil/White Petrolatum (Eucerin Cream) 0 gm TOP BIDPRN PRN PRN Reason: Dry Skin Morphine Sulfate (Morphine) 2 mg SLOW IVP Q4H PRN PRN Reason: Pain Last Admin: 04/11/18 09:14 Dose: 2 mg Ondansetron HCl (Zofran Odt) 4 mg PO Q6H PRN PRN Reason: Nausea/Vomiting Last Admin: 04/10/18 11:03 Dose: 4 mg Ondansetron HCl (Zofran) 4 mg IVP Q6H PRN PRN Reason: Nausea/Vomiting Last Admin: 04/12/18 06:22 Dose: 4 mg Pantoprazole Sodium (Protonix) 40 mg PO DAILY [facility] Last Admin: 04/12/18 07:59 Dose: 40 mg Phenol (Chloraseptic [place] 180 Ml Bot) 0 ml PO PRN PRN PRN Reason: Sore Throat Polyethylene Glycol (Miralax) 17 gm PO DAILY [facility] Last Admin: 04/12/18 08:00 Dose: Not Given Saccharomyces Boulardii (Florastor) 250 mg PO DAILY [facility] Last Admin: 04/12/18 07:59 Dose: 250 mg Senna (Senokot) 2 tab PO HSPRN PRN PRN Reason: Constipation Sodium Chloride ([place] Nasal [place] 0.65%) 0 ml EA NARE QIDPRN PRN PRN Reason: Nasal Congestion Sodium Chloride (Flush - Normal Saline) 10 ml IVF Q12HR [facility] Last Admin: 04/12/18 08:01 Dose: Not Given Sodium Chloride (Flush - Normal Saline) 10 ml IVF PRN PRN PRN Reason: Saline Flush Zolpidem Tartrate (Ambien) 5 mg PO HSPRN PRN PRN Reason: Insomnia Last Admin: 04/07/18 21:17 Dose: 5 mg
--- NOTE | 2018-04-12 12:16 | ULT ---
BILATERAL RENAL ULTRASOUND COMPLETE: Date: 04/12/18 HISTORY: 62-year-old male with history of acute renal failure. FINDINGS: The right kidney measures 10.5 x 5.3 x 6.6 cm. The left kidney measures 11.2 x 5.3 x 6.6 cm. Bilatera l ureteral jets. The bladder is unremarkable. IMPRESSION: Unremarkable bilateral renal ultrasound. POS: PAUL
[2018-04-12] MEDS: Atorvastatin Calcium 10 MG TAB PO SCH (20:07)
[2018-04-12] MEDS: Insulin Glargine 25 UNITS in Pre-Filled Syringe 1 EACH SC SCH (20:08)
[2018-04-13] MEDS: Sodium Chloride 0.9% 1,000 ML IV SCH ×4 (02:00→20:05)
[2018-04-13] MEDS: Cipro 250 MG TAB PO SCH ×2 (05:20→20:01)
[2018-04-13 07:52] LABS: #Eosinphils 0.2 thou/uL (0.0-0.7); #Lymphocytes 1.8 thou/uL (1.20-3.40); #Monocytes 0.9 thou/uL (0.11-0.59); #Neutrophils 7.7 thou/uL (1.40-6.50); %Basophils 0.3 % (0.0-1.0); %Eosinophils 2.2 % (0.0-10.0); %Lymphocytes 16.9 % (21.0-51.0); %Monocytes 8.4 % (0.0-10.0); %Neutrophils 72.1 % (42.0-75.0); Hemoglobin 13.6 g/dL (14.0-18.0); Mean Corpuscular HGB CONC 34.2 g/dL (32.0-36.0); Mean Corpuscular Hemoglobin 29.9 pg (27.0-31.0); Mean Corpuscular Volume 87.2 fL (78.0-98.0); Platelet Count 287 thou/uL (130-400); Red Blood Cell (RBC) Count 4.56 mill/uL (4.70-6.10); White Blood Cell (WBC) Count 10.7 thou/uL (4.8-10.8)
[2018-04-13 08:09] LABS: Anion Gap 11 mmol/L (10-20); BUN (Urea Nitrogen) 46 mg/dL (8.4-25.7); Calc. Creatinine Clearance 28 mL/min (70-130); Calcium 9.5 mg/dL (7.8-10.44); Carbon Dioxide 27 mmol/L (22-29); Chloride 104 mmol/L (98-107); Estimated GFR-MDRD 23; Glucose 127 mg/dL (70-105); Potassium 4.6 mmol/L (3.5-5.1); Sodium 137 mmol/L (136-145)
[2018-04-13] MEDS: Carvedilol 6.25 MG TAB PO SCH ×2 (08:28→16:24)
[2018-04-13] MEDS: Amlodipine 10 MG TAB PO SCH (08:29)
[2018-04-13] MEDS: Saccharomyces boulardii 250 MG CAP PO SCH (08:30)
[2018-04-13] MEDS: hydrALAZINE 25 MG TAB PO SCH ×3 (08:30→20:02)
[2018-04-13] MEDS: Enoxaparin Sodium 30 MG/0.3 ML SYRINGE SC SCH (08:30)
[2018-04-13] MEDS: Docusate 100 MG CAP PO SCH ×2 (08:30→20:02)
[2018-04-13] MEDS: Polyethylene Glycol 3350 17 GM Packet PO SCH (08:31)
--- NOTE | 2018-04-13 11:28 | PDOC.PN ---
- Subjective Encounter Start Date: 04/13/18 Encounter Start Time: 10:10 Patient seen and examined. No new complaints. No overnight events - Objective Resuscitation Status: Resuscitation Status FULL:Full Resuscitation MAR Reviewed: Yes Vital Signs & Weight: Vital Signs (12 hours) Temp Pulse Resp BP BP BP Pulse Ox 04/13/18 08:30 67 163/77 H 04/13/18 08:29 67 163/77 H 04/13/18 08:28 163/77 H 04/13/18 08:01 98.3 F 67 16 163/77 H 96 04/13/18 08:00 98.3 F 67 16 96 04/13/18 04:00 98.2 F 71 18 131/66 94 L 04/13/18 00:10 98.3 F 75 18 143/68 H 96 Weight Admit Weight 155 lb Weight 155 lb I&O: 04/12/18 04/13/18 04/14/18 06:59 06:59 06:59 Intake Total 4000 1500 Output Total 1850 1500 Balance 2150 0 Result Diagrams: 04/13/18 07:40 04/13/18 07:40 Additional Labs: Accuchecks 04/13/18 04/12/18 04/12/18 05:26 19:23 16:49 POC Glucose 148 H 223 H 257 H 04/12/18 11:33 POC Glucose 286 H Phys Exam - Physical Examination Constitutional: NAD HEENT: PERRLA, moist MMs, sclera anicteric Neck: no JVD, supple Respiratory: no wheezing, no rales, no rhonchi Cardiovascular: RRR, no significant murmur, no rub Gastrointestinal: soft, non-tender, no distention, positive bowel sounds Musculoskeletal: no edema, pulses present right foot with wound vac Neurological: non-focal, normal sensation, moves all 4 limbs Lymphatic: no nodes Psychiatric: normal affect, A&O x 3 Skin: no rash, normal turgor Dx/Plan (1) Diabetic foot infection Code(s): E11.628 - TYPE 2 DIABETES MELLITUS WITH OTHER SKIN COMPLICATIONS; L08.9 - LOCAL INFECTION OF THE SKIN AND SUBCUTANEOUS TISSUE, UNSP Status: Acute Comment: s/p I & D (2) Failure of outpatient treatment Code(s): Z78.9 - OTHER SPECIFIED HEALTH STATUS Status: Acute (3) DM2 (diabetes mellitus, type 2) Status: Chronic (4) Dyslipidemia Code(s): E78.5 - HYPERLIPIDEMIA, UNSPECIFIED Status: Chronic (5) HTN (hypertension) Code(s): I10 - ESSENTIAL (PRIMARY) HYPERTENSION Status: Chronic (6) Acute kidney failure Status: Acute - Plan cont current plan of care, plan discussed w/ family, continue antibiotics, social science analyst * now creatinine is tended down * await wound vac placement * monitor renal function * medication reviewed as below * symptomatic treatment. * if tomorrow creatinine is still getting normal side, will consider discharge, if not then will consult nephrology input Review of Systems - Review of Systems Eyes: negative: Pain, Vision Change, Conjunctivae Inflammation, Eyelid Inflammation, Redness, Other ENT: negative: Ear Pain, Ear Discharge, Nose Pain, Nose Discharge, Nose Congestion, Mouth Pain, Mouth Swelling, Throat Pain, Throat Swelling, Other Respiratory: negative: Cough, Dry, Shortness of Breath, Hemoptysis, SOB with Excertion, Pleuritic Pain, Sputum, Wheezing Cardiovascular: negative: chest pain, palpitations, orthopnea, paroxysmal nocturnal dyspnea, edema, light headedness, other Gastrointestinal: negative: Nausea, Vomiting, Abdominal Pain, Diarrhea, Constipation, Melena, Hematochezia, Other Genitourinary: negative: Dysuria, Frequency, Incontinence, Hematuria, Retention , Other Musculoskeletal: negative: Neck Pain, Shoulder Pain, Arm Pain, Back Pain, Hand Pain, Leg Pain, Foot Pain, Other Skin: negative: Rash, Lesions, Tulio, Bruising, Other - Medications/Allergies Allergies/Adverse Reactions: Allergies Allergy/AdvReac Type Severity Reaction Status Date / Time No Known Drug Allergies Allergy Verified 06/13/17 21:20 Medications: Current Medications Acetaminophen (Tylenol) 650 mg PO Q4H PRN PRN Reason: Headache/Fever or Pain Last Admin: 04/12/18 20:07 Dose: 650 mg Hydrocodone Bitart/Acetaminophen ([place] 5/325) 1 tab PO Q4H PRN PRN Reason: Moderate Pain (4-6) Last Admin: 04/11/18 15:22 Dose: 1 tab Al Hydroxide/Mg Hydroxide (Maalox) 30 ml PO Q6H PRN PRN Reason: Heartburn or Indigestion Last Admin: 04/12/18 06:25 Dose: 30 ml Amlodipine Besylate (Norvasc) 10 mg PO DAILY [facility] Last Admin: 04/13/18 08:29 Dose: 10 mg Artificial Tears (Tears Naturale) 0 drop EA EYE PRN PRN PRN Reason: Dry Eyes Aspirin (Aspirin Chewable) 81 mg PO DAILY [facility] Last Admin: 04/13/18 08:29 Dose: 81 mg Atorvastatin Calcium (Lipitor) [address] [facility] Last Admin: 04/12/18 20:07 Dose: 10 mg Carvedilol (Coreg) 25 mg PO BID[facility] Last Admin: 04/13/18 08:28 Dose: 25 mg Ciprofloxacin (Cipro) 250 mg PO BID@0600,1999 [facility] Last Admin: 04/13/18 05:20 Dose: 250 mg Dextrose/Water (Dextrose 50%) 25 gm SLOW IVP PRN PRN PRN Reason: Hypoglycemia Docusate Sodium (Colace) 100 mg PO BID [facility] Last Admin: 04/13/18 08:30 Dose: 100 mg Enoxaparin Sodium (Lovenox) 30 mg SC 0900 [facility] Last Admin: 04/13/18 08:30 Dose: 30 mg Glucagon (Glucagon) 1 mg IM PRN PRN PRN Reason: Hypoglycemia Guaifenesin (Robitussin Sf) 200 mg PO Q4H PRN PRN Reason: Cough Hydralazine HCl (Apresoline) 10 mg SLOW IVP Q4H PRN PRN Reason: Systolic BP > 180 Last Admin: 04/09/18 20:26 Dose: 10 mg Hydralazine HCl (Apresoline) 25 mg PO TID [facility] Last Admin: 04/13/18 08:30 Dose: 25 mg Dextrose/Water (D5w) 1,000 mls @ 0 mls/hr IV .Q0M PRN; As Directed PRN Reason: Hypoglycemia Insulin Glargine 25 units/ (Miscellaneous Medication) 0.25 mls @ 0 mls/hr SC [facility] Last Admin: 04/12/18 20:08 Dose: 0.25 mls Sodium Chloride (Normal Saline 0.9%) 1,000 mls @ 100 mls/hr IV .Q10H [facility] Last Admin: 04/13/18 02:00 Dose: 1,000 mls Insulin Human Lispro (Humalog) 0 units SC .MODERATE SLIDING SC PRN PRN Reason: Moderate Correctional Scale Last Admin: 04/12/18 12:09 Dose: 6 unit Insulin Human Lispro (Humalog) 0 units SC .BEDTIME SLIDING SC PRN PRN Reason: Bedtime Correctional Scale Last Admin: 04/12/18 20:09 Dose: 2 unit Labetalol HCl (Normodyne) 20 mg SLOW IVP Q4H PRN PRN Reason: Systolic BP > 180 Loperamide HCl (Imodium) 2 mg PO PRN PRN PRN Reason: Diarrhea/Loose Stools Loratadine (Claritin) 10 mg PO DAILYPRN PRN PRN Reason: Sinus Symptoms Magnesium Hydroxide (Milk Of Magnesium) 30 ml PO DAILYPRN PRN PRN Reason: Constipation Mineral Oil/White Petrolatum (Eucerin Cream) 0 gm TOP BIDPRN PRN PRN Reason: Dry Skin Morphine Sulfate (Morphine) 2 mg SLOW IVP Q4H PRN PRN Reason: Pain Last Admin: 04/11/18 09:14 Dose: 2 mg Ondansetron HCl (Zofran Odt) 4 mg PO Q6H PRN PRN Reason: Nausea/Vomiting Last Admin: 04/10/18 11:03 Dose: 4 mg Ondansetron HCl (Zofran) 4 mg IVP Q6H PRN PRN Reason: Nausea/Vomiting Last Admin: 04/12/18 06:22 Dose: 4 mg Pantoprazole Sodium (Protonix) 40 mg PO DAILY [facility] Last Admin: 04/13/18 08:30 Dose: 40 mg Phenol (Chloraseptic [place] 180 Ml Bot) 0 ml PO PRN PRN PRN Reason: Sore Throat Polyethylene Glycol (Miralax) 17 gm PO DAILY [facility] Last Admin: 04/13/18 08:31 Dose: Not Given Saccharomyces Boulardii (Florastor) 250 mg PO DAILY [facility] Last Admin: 04/13/18 08:30 Dose: 250 mg Senna (Senokot) 2 tab PO HSPRN PRN PRN Reason: Constipation Sodium Chloride ([place] Nasal [place] 0.65%) 0 ml EA NARE QIDPRN PRN PRN Reason: Nasal Congestion Sodium Chloride (Flush - Normal Saline) 10 ml IVF Q12HR [facility] Last Admin: 04/13/18 08:31 Dose: Not Given Sodium Chloride (Flush - Normal Saline) 10 ml IVF PRN PRN PRN Reason: Saline Flush Zolpidem Tartrate (Ambien) 5 mg PO HSPRN PRN PRN Reason: Insomnia Last Admin: 04/07/18 21:17 Dose: 5 mg
[2018-04-13] MEDS: HumaLOG 300 UNITS/3 ML VIAL SC PRN (12:26)
--- NOTE | 2018-04-13 15:27 | PDOC.GSPN ---
Surgery Progress Note: Subj - Subjective Narrative: Foot very sensitive during VAC change. Wound is fairly clean but w some sloughing nonviable tissue near periphery and some exposed extensor tendons. No expressible purulence and swelling is down. A/P) Doing well overall. Home when VAC approved. Wound should continue to debride w VAC dressing changes. Surgery Progress Note: Obj - Vital signs Vital signs: Vital Signs - Most Recent Temp Pulse Resp BP Pulse Ox 98.3 F 72 18 149/70 H 95 04/13/18 11:24 04/13/18 11:24 04/13/18 11:24 04/13/18 11:24 04/13/18 11:24 Surgery Progress Note: Results - Labs Result Diagrams: 04/13/18 07:40 04/13/18 07:40 Lab results: Laboratory Results - last 24 hr 04/13/18 04/13/18 04/13/18 05:26 07:40 07:40 WBC 10.7 RBC 4.56 L Hgb 13.6 L Hct 39.7 L MCV 87.2 MCH 29.9 MCHC 34.2 RDW 11.0 L Plt Count 287 MPV 7.0 L Neutrophils % 72.1 Lymphocytes % 16.9 L Monocytes % 8.4 Eosinophils % 2.2 Basophils % 0.3 Neutrophils # 7.7 H Lymphocytes # 1.8 Monocytes # 0.9 H Eosinophils # 0.2 Basophils # 0.0 Sodium 137 Potassium 4.6 Chloride 104 Carbon Dioxide 27 Anion Gap 11 BUN 46 H Creatinine 2.78 H Estimated GFR (MDRD) 23 Glucose 127 H POC Glucose 148 H Calcium 9.5 04/13/18 11:28 WBC RBC Hgb Hct MCV MCH MCHC RDW Plt Count MPV Neutrophils % Lymphocytes % Monocytes % Eosinophils % Basophils % Neutrophils # Lymphocytes # Monocytes # Eosinophils # Basophils # Sodium Potassium Chloride Carbon Dioxide Anion Gap BUN Creatinine Estimated GFR (MDRD) Glucose POC Glucose 209 H Calcium
--- NOTE | 2018-04-13 18:10 | PRG ---
DATE OF SERVICE: 04/13/2018 SUBJECTIVE: Feeling better. Waiting on the vacuum device machine to be obtained for discharge plann ing. No respiratory symptoms or abdominal pain. No diarrhea. PHYSICAL EXAMINATION: VITAL SIGNS: Essentially normal. GENERAL: Awake, alert, oriented. LUNGS: Clear. HEART: S1, S2, regular rate. ABDOMEN: Soft, not distended. EXTREMITIES: Right foot with moderate tenderness. Microbiology with Enterobacter cloacae complex wi th very broad susceptibility profile. ASSESSMENT AND DISCUSSION: Type 2 diabetes, perforating injury right forefoot with abscess, but no e vidence of bone and joint involvement, broadly susceptible Enterobacter species to be transitioned to oral ciprofloxacin for discharge planning. Treat for about 2 weeks. Follow up in the clinic.
[2018-04-13] MEDS: Atorvastatin Calcium 10 MG TAB PO SCH (20:01)
[2018-04-13] MEDS: Insulin Glargine 25 UNITS in Pre-Filled Syringe 1 EACH SC SCH (20:02)
[2018-04-14] MEDS: Sodium Chloride 0.9% 1,000 ML IV SCH (05:39)
[2018-04-14] MEDS: Cipro 250 MG TAB PO SCH (05:39)
[2018-04-14] MEDS: HYDROcodone/Acetaminophen 5/325 mg Tablet PO PRN (05:39)
[2018-04-14 06:45] LABS: Anion Gap 9 mmol/L (10-20); BUN (Urea Nitrogen) 42 mg/dL (8.4-25.7); Calc. Creatinine Clearance 32 mL/min (70-130); Calcium 9.1 mg/dL (7.8-10.44); Carbon Dioxide 27 mmol/L (22-29); Chloride 102 mmol/L (98-107); Estimated GFR-MDRD 27; Glucose 136 mg/dL (70-105); Potassium 4.1 mmol/L (3.5-5.1); Sodium 134 mmol/L (136-145)
[2018-04-14] MEDS ORDERED: Sodium Chloride 0.9% 1,000 ML IV SCH (08:48)
[2018-04-14] MEDS: Carvedilol 6.25 MG TAB PO SCH (09:15)
[2018-04-14] MEDS: Amlodipine 10 MG TAB PO SCH (09:16)
[2018-04-14] MEDS: hydrALAZINE 25 MG TAB PO SCH (09:17)
[2018-04-14] MEDS: Enoxaparin Sodium 30 MG/0.3 ML SYRINGE SC SCH (09:17)
[2018-04-14] MEDS: Saccharomyces boulardii 250 MG CAP PO SCH (09:17)
[2018-04-14] MEDS: Docusate 100 MG CAP PO SCH (09:17)
[2018-04-14] MEDS: Polyethylene Glycol 3350 17 GM Packet PO SCH (09:18)
--- NOTE | 2018-04-14 12:06 | DIS ---
DATE OF ADMISSION: 04/06/2018 DATE OF DISCHARGE: 04/14/2018 PRIMARY CARE PHYSICIAN: [facility]. DISCHARGE DISPOSITION: Home with home health. PRIMARY DISCHARGE DIAGNOSES: 1. Diabetic foot infection, status post I and D, failure of outpatient therapy. 2. Acute kidney failure. SECONDARY DISCHARGE DIAGNOSES: Diabetes, type 2; hypertension; dyslipidemia; chronic low back pain. PRIMARY PROCEDURE/OPERATION: I and D was performed by Dr. Tamayo. RADIOLOGICAL INVESTIGATION: Foot x-ray. Renal ultrasound normal. SIGNIFICANT LABORATORY DATA: WBC 10.7, hemoglobin 13.6, platelets 287. Sodium 134, potassium 4.1, B UN 42, creatinine 2.43, calcium 9.1. Urinalysis normal. Culture from foot grew gram-negative nba, E nterobacter cloacae. DISCHARGE MEDICATIONS: Cipro 250 mg p.o. b.i.d. for 10 days, aspirin 81 mg p.o. daily, Lipitor 10 mg p.o. at bedtime, Coreg 25 mg p.o. b.i.d., Levemir 25 units subcu at bedtime, Centrum Silver 1 tablet p.o. daily, MiraLax 17 grams p.o. daily, Florastor 250 mg p.o. daily. CONTRAINDICATIONS: None. CODE STATUS: FULL CODE. INPATIENT CONSULTANTS: Dr. Pulliam was consulted. Dr. Tamayo did I and D. TEST RESULTS PENDING ON DISCHARGE: None. ALLERGIES: No known drug allergy. DISCHARGE PLAN: Post hospital, the patient will follow up with Dr. Pulliam, Dr. Anne, and Dr. Kerri richard. HOSPITAL COURSE: This is a 62-year-old male with above-mentioned medical problem, who was admitted b y id on 04/06/2018 for diabetic foot infection on the right side. Patient was not interested in kana g for any amputation and that is why we treated conservatively during this admission. His foot x-ray was not consistent with any osteomyelitis. Patient underwent I and D and subsequently wound care wa s applied. The patient was getting wound care with wound care team. We consulted Dr. Pulliam and Dr. Pulliam was following, and based on his assessment, he recommended oral antibiotic therapy based on cul ture and sensitivity result. He recommended Cipro therapy. While in hospital, we noted that he had acute kidney injury and that is why we discontinued captopril and that medication was adjusted based on his hemodynamics. We did renal ultrasound, which was norm al. We gave him IV fluid and after that his renal function started improving. We consulted Dr. Eitan gongora on the day of discharge and patient is instructed to follow up with Dr. Anne. At this point, patient is medically stable for discharge. Wound care is already arranged. Wound VAC is also arranged. The patient is seen and examined at bedside today. Plan of care discussed with the patient and famil y member. REVIEW OF SYSTEMS: Negative. PHYSICAL EXAMINATION: VITAL SIGNS: Currently, temperature 98.1, pulse 71, respiratory rate 16, saturation 92%, blood press ure 137/74, weight 155 pounds. GENERAL: The patient is currently alert, awake, in no obvious acute distress. HEAD: Normocephalic, atraumatic. EYES: Pupils round, reactive to light. Extraocular muscle intact. ENT: Oropharynx within normal limits. Moist mucous membranes. No oral lesion, no pharyngeal erythe ma, no exudate. NECK: Supple, no JVD, no thyromegaly, no carotid bruit. LUNGS: Clear to auscultation without any rhonchi or rales. CARDIAC: S1 and S2, regular, without any significant murmur. ABDOMEN: Soft and benign. EXTREMITIES: No edema. NEUROLOGIC: Nonfocal examination. The patient is overall medically stable for discharge today.
[2018-04-14 12:32] VITALS: BP 137/69; TEMP 98.2
--- NOTE | 2018-04-15 08:29 | CON ---
DATE OF CONSULTATION: 04/14/2018 CONSULTING PHYSICIAN: Dr. Omid Piña. REQUESTING PHYSICIAN: Dr. Ibarra. REASON FOR CONSULTATION: Acute kidney injury. IMPRESSION: Acute kidney injury, query cause in this patient, this is possibly related to hemodynami c changes in the context of possible drop in blood pressure during surgical intervention; however, I cannot completely rule out a component of cytokine-mediated injury versus drug-induced nephritis. Marlon gonzalez with a baseline creatinine of about 0.8 as of 04/07/2018. However, there was these with no blood work done and when the blood work now suddenly got checked, creatinine jumped up to 2.9. As a result of this, decision has been taken to involve Renal in the management of this case. PLAN: 1. Renal supportive measures. 2. Follow up with me within 2 weeks. 3. Further management to be dependent on the clinical course. HISTORY OF PRESENT ILLNESS: This is a 62-year-old gentleman with infected foot, having stepped on a nail who presented here because of nonhealing and failed outpatient therapy and presented with a crea tinine of 0.8. Over the course of several days, creatinine jumped up to 2.91. Patient did undergo s urgical debridement incision and drainage of the infected foot. Patient at this time of dictation se ems to be feeling better, status post incision and drainage. PAST MEDICAL HISTORY: Significant for diabetes, hypertension, lumbago, dyslipidemia. MEDICATIONS: Reviewed and as documented on [employer]. ALLERGIES: No known drug allergy. FAMILY HISTORY: None significantly related to presenting illness. SOCIAL HISTORY: Denies alcohol, tobacco, or illicit drug use. LABORATORY INVESTIGATION: Showed a creatinine of 2.81. PHYSICAL EXAMINATION: GENERAL: The patient was found not to be in any obvious distress noted with the following vital sign s: VITAL SIGNS: Afebrile, temperature 98.2, pulse 70, respiratory rate of 16, O2 sat 99% on 2%. HEENT: Unremarkable. Moist oral mucosa. Neck: Supple, no conjunctival injection or icterus. CARDIOVASCULAR SYSTEM: First and second heart sounds were heard. RESPIRATORY SYSTEM: Clear to auscultation. DIGESTIVE SYSTEM: Revealed a benign abdomen with positive bowel sounds. EXTREMITIES: No peripheral edema. SKIN: No new gross rash. LYMPHATICS: No peripheral lymphadenopathy. SUMMARY: A 62-year-old gentleman who presented here with a nonhealing diabetic foot, status post I&D , now experiencing deterioration in renal function. Thank you for this consultation. We will follow with you.
== END 2018-04-14 12:12 | disposition home or self-care (01) | DRG 854 ==
LOC: ERS 13:19 → T4-B 15:35
PROVIDERS: ADMIT Internal Medicine; ATTEND Internal Medicine
PROC: 0JBQ0ZZ Excision of Right Foot Subcutaneous Tissue and Fascia, Open Approach (ICD-10-PCS; principal; 2018-04-07)
DX: A41.9 Sepsis, unspecified organism (principal); N17.9 Acute kidney failure, unspecified; L02.611 Cutaneous abscess of right foot; E11.65 Type 2 diabetes mellitus with hyperglycemia; E78.5 Hyperlipidemia, unspecified; I10 Essential (primary) hypertension; F41.9 Anxiety disorder, unspecified; M54.5 Low back pain; B96.89 Other specified bacterial agents as the cause of diseases classified elsewhere; Z79.4 Long term (current) use of insulin; E11.628 Type 2 diabetes mellitus with other skin complications
CPT/HCPCS: 36415; 36416; 76770; 80048; 80053; 80202; 81001; 81003; 81015; 82550; 82570; 83605; 84156; 84300; 84550; 85025; 85652; 86140; 87040; 87070; 87077; 87086; 87186; 87205; 96365; A4216; J0360; J1100; J1650; J1885; J2001; J2270; J2405; J2543; J2704; J3010; J3370; J7050; Q0162